=== PATIENT | female | born 1970 | race Caucasian/White ===

== ENCOUNTER 2025-05-25 11:57 | Observation (INO) | payer OTHER, SELFPAY ==
[2025-05-25] VITALS (32 sets, daily range): BP systolic 110–136; BP diastolic 64–94; PULSE 60–91; RESP 14–19; TEMP 35.8–36.9; O2SAT 96–100; BMI 27.3
--- NOTE | ~2025-05-25 | CT_ITS ---
EXAMINATION: CT abdomen pelvis wo con DATE: 05/25/2025 15:25 INDICATION: abd pain, vomiting, hx kidney stones TECHNIQUE: Computed tomography (CT) of the abdomen and pelvis was performed without intravenous contr ast. Automated exposure control and iterative reconstruction technique were employed. The dose-length product was 239.44 mGy-cm. COMPARISON: None. FINDINGS: Lower thorax: 5 mm peripheral left lower lobe pulmonary nodule. Liver: Normal. Biliary/Gallbladder: Gallbladder is absent. No bile duct dilation. Pancreas: No mass or duct dilation. Spleen: Normal. Adrenals:No mass. Kidneys: No suspicious mass, obstructing stone, or hydronephrosis. Multiple bilateral nonobstructing renal calculi, measuring up to 6 mm in the left lower pole. GI tract: No small or large bowel dilation. Appendix is dilated measuring up to 8 mm. No significant surrounding inflammatory change. Mesentery/Peritoneum: No ascites, mass, or free air. Retroperitoneum: No mass. Atherosclerotic calcifications of intra-abdominal arterial vessels. Pelvis: Normal urinary bladder. Absent uterus. Simple appearing bilateral ovarian cysts.. Soft Tissues: Small uncomplicated fat-containing bilateral inguinal hernias. Bones: No acute osseous finding. Grade 1 anterolisthesis at L4-5. IMPRESSION: 5 mm peripheral left lower lobe pulmonary nodule which requires no additional evaluation, unless the patient is at high risk, in which case consider an optional follow-up low-dose noncontrast CT of the chest in 12 months. Bilateral nephrolithiasis, without evidence of obstructive uropathy. Dilated appendix measuring up to 8 mm, without inflammatory changes. This may be normal for this darryl ent or represent early acute uncomplicated appendicitis. Reviewed, dictated and finalized at location K. IMPRESSION: 5 mm peripheral left lower lobe pulmonary nodule which requires no additional e valuation, unless the patient is at high risk, in which case consider an option al follow-up low-dose noncontrast CT of the chest in 12 months. Bilateral nephrolithiasis, without evidence of obstructive uropathy. Dilated appendix measuring up to 8 mm, without inflammatory changes. This may b e normal for this patient or represent early acute uncomplicated appendicitis.
--- NOTE | 2025-05-25 11:58 | ECG_ITS ---
Test Date: 2025-05-25 12:03:32 Measurements Intervals [place] Rate: 61 P: 53 ID: 150 QRS: -4 QRSD: 105 T: 28 QT: 398 QTc: 402 Interpretive Statements SINUS RHYTHM POSSIBLE RIGHT VENTRICULAR CONDUCTION DELAY [RSR (QR) IN V1/V2] No previous ECG available for comparison Electronically Signed On 05-25-2025 18:00:08 CDT by Helio Perry M.D.
[2025-05-25 14:28] LABS: Add Urine Microscopic? YES; Appearance Urine Cloudy (Clear); Glucose Urine UA Negative (Negative); Leukocyte Esterase Ur 2+ LEU/UL (Negative); Nitrate Urine Positive (Negative); Non Pathogenic Casts 0-2; Specific Grav Ur 1.018 (1.001-1.035)
[2025-05-25 14:31] LABS: Hematocrit 40.6 % (37.0-47.0); Hemoglobin 13.9 g/dL (12.0-15.0); Immature Granulocyte Percent A 0.6 % (0-0.5); Lymphocytes Absolute Auto 0.81 K/mm3 (0.9-3.2); Mean Corpuscular HGB Conc 34.2 g/dl (32-36); Mean Corpuscular Hemoglobin 29.8 pg (26-34); Mean Corpuscular Volume 86.9 fl (80-100); Nucleated Red Blood Cells Absolute Auto 0.000 K/mm3 (0.0-0.012); Nucleated Red Blood Cells Perc 0.0 % (0.0-0.2); Platelet Count Result 221 k/mm3 (150-375); Red Blood Count 4.67 M/mm3 (4.2-5.4); White Blood Count 16.6 K/mm3 (4.5-10.0)
--- OUTSIDE RECORDS SUMMARY | 2025-05-25 14:41 | XMS_ITS | Encounter Summary ---
Author Organization [employer] Address [address] [place] [address] Care Team Providers Care As400 Analyst Name Role Phone Tracey Silva MD Primary Care Provid er Reason for Visit * Reason Comments Medication Refill Encounter Details Date Type Department Care Team (Late st Contact Info) Description 12/09/2019 Refill [facility] [address] [facility] [address] [place] [id number] Patti Calderon NP NO ADDRESS ON FILE Social History Tobacco Use Types Packs/Day Years Used Date Smoking Tobacco: Never Smokeless Tobacco: Never Alcohol Use Standard Drinks/Week Comments Yes 0 (1 standard drink = 0.6 oz pur e alcohol) socially Comments No Sex and Gender Information Value Date Recorded Sex Assigned at Not on file 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 Gender Identity Not on file Sexual Orientation Not on file Occupation Industry Job Start Date Job End Date Not on file Not on file Not on file Not on file documented as of this encounter Plan of Treatment Not on file documented as of this encounter Visit Diagnoses Not on filedocumented in this encounter Additional Health Concerns Infection Onset Date Last Indicated Resolved Time MRSA Comment:Resolved per Type and Duration of Precautions Recommended for Selected Infections and Conditions document 2023 update 04/16/2020 04/16/2020 07/15/20 24 11:36 AM CDT Assessment Noted Time PHQ-9 Depression Total Score: 3 11/04/19 20 8:00 AM WIRE TAPER documented as of this encounter Care Teams As400 Analyst Relationship Specialty Start Date End Date Tracey Silva MD PCP - General Internal Medicine 12/29/14 08/02/23 documented as of this encounter
--- OUTSIDE RECORDS SUMMARY | 2025-05-25 14:42 | XMS_ITS | Patient Health Record ---
Author Organization [facility] [place] Address [address] [place] [address] Care Team Providers Care Mulling Machine Operator Name Role Phone Joel Monroe Unavailable [phone] Rob SPENCER, Esteban Unavailable Unavailabl e Allergies Allergen (clinical drug ingredient) Drug/Non Drug Allergy documented on EMR Reaction Allergy Type Onset Date Status Shellfish (FN) shellfish (uncoded) Unknown Allergy Active Levaquin Unknown Drug Allergy Active morphine Morphine Sulfate Unknown Drug Allergy Active Sulfacet-R Unknown Drug Allergy Active tiagabine Tiagabine HCl Unknown Drug Allergy Act mina Reason For Referral No Information Medications Medication SIG (Take, Route, Frequency, Duration) Notes Start Date End Date Status Zofran 4 MG 1 tablet Orally Once a day Active Diclofenac Sodium 75 MG 1 tablet Orally Twice a day Active Cyclobenzaprine HCl ER 15 MG 1 capsule a s needed Orally Once a day Active Virtussin A/C 100-10 MG/5ML 5 ml Orally every 4 hrs Active diazePAM 2 MG 1 tablet as needed Orally Once a day Active Emgality 120 MG/ML as directed Subcutaneous Active Lisinopril 20 MG 1 tablet Orally Once a day Active FLUoxetine HCl 40 MG 1 capsule Orally On ce a day Active HYDROcodone-Acetaminophen 5-325 MG 1 tablet as needed Orally every 6 hrs Active Nortriptyline HCl 25 MG as directed Oral ly Once a day Active B12 Fast Dissolve 5000 MCG as directed Orally Active Protonix 40 MG 1 tablet Orally Once a day Active buPROPion HCl ER (XL) 300 MG 1 tablet in the morning Orally Once a day Active Imitrex 50 MG 1 tablet at least 2 hours between doses as needed Orally Once a day Active Cambia 50 MG as directed Orally Active Ventolin HFA 108 (90 Base) MCG/ACT 1 puff as needed Inhalation every 4 hrs Active Social History Tobacco Use: Social History Observation Description Date Details (start date - stop date) Never Smoker NA - NA Tobacco Use/Smoking Question Answer Notes Are you a nonsmoker Alcohol Screen (Audit-C) Question Answer Notes Did you have a drink containing alcohol in the p ast year? Yes Points 0 Interpretation Negative Problems Problem Type SNOMED Code ICD Code Onset Dates Problem Status W/U Status Risk Notes Problem Displacement of lumbar intervertebral disc without myelopathy (79403128) Bulging lumbar disc (M51.26) Active confirmed Problem Degeneration of lumbar intervertebral disc (09738785) Degeneration of intervertebral disc at L5-S1 level (M51.36) Active confirmed Plan Of Treatment Pending Test Test Name Order Date MRI : Lumbar without contrast 12/23/2019 Insurance Providers Payer Name Payer Address Payer Phone Subscriber Number Group Number Insured Name Patient Relationship to Insured Coverage Start Date Coverage End Date [facility] POS [address] [place] [phone] [id number] Graciela Arauz Self - patient is the insured Medical (General) History Medical History History ICD Code kidney infections kidney stones urinary incontinence bladder infections headaches migraine headaches irritable bowel syndrome asthma mononucleosis depression anxiety Panic attacks Surgical History Surgery Date(Month/Year) shoulder replacement kidney stones hysterectomy Hospitalization History Reason Date(Month/Year) sepsis
--- OUTSIDE RECORDS SUMMARY | 2025-05-25 14:42 | XMS_ITS | Encounter Summary ---
Author Organization [employer] Address 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 Gender Identity Not on file Sexual Orientation Not on file documented as of this encounter Plan of Treatment Not on file documented as of this encounter Visit Diagnoses Diagnosis Unspecified symptom associated with female genital organs- Primary documented in this encounter Additional Health Concerns Infection Onset Date Last Indicated Resolved Time MRSA Comment:Resolved per Type and Duration of Precautions Recommended for Selected Infections and Conditions document 2023 update 04/16/2020 04/16/2020 07/15/20 24 11:36 AM CDT documented as of this encounter Care Teams Clinical Medical Assistant Relationship Specialty Start Date End Date Tracey Silva MD PCP - General Internal Medicine 12/29/14 08/02/23 documented as of this encounter
--- OUTSIDE RECORDS SUMMARY | 2025-05-25 14:42 | XMS_ITS | Encounter Summary ---
Author Organization [facility] Address 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 Gender Identity Not on file Sexual Orientation Not on file documented as of this encounter Plan of Treatment Not on file documented as of this encounter Visit Diagnoses Diagnosis Other screening mammogram- Primary documented in this encounter Additional Health Concerns Infection Onset Date Last Indicated Resolved Time MRSA Comment:Resolved per Type and Duration of Precautions Recommended for Selected Infections and Conditions document 2023 update 04/16/2020 04/16/2020 07/15/20 24 11:36 AM CDT documented as of this encounter Care Teams Force Adjustment Supervisor Relationship Specialty Start Date End Date Tracey Silva MD PCP - General Internal Medicine 12/29/14 08/02/23 documented as of this encounter
--- OUTSIDE RECORDS SUMMARY | 2025-05-25 14:42 | XMS_ITS | Patient Health Record ---
Author Organization [facility] Address [address] [place], [place] [address] Care Team Providers Care Dentistry Teacher Name Role Phone Everardo Urbina Unavailable [phone] Migration, Provider Unavailable Unavailable Allergies Allergen (clinical drug ingredient) Drug/Non Drug Allergy documented on EMR Reaction Allergy Type Onset Date Status LEVAQUIN (uncoded) Unknown Allergy Active Seafood SEAFOOD (uncoded) Unknown Allergy Active SULFA (uncoded) hives Allergy Acti ve azithromycin Zithromax Z-Hardeep diarrhea Drug Allergy Active trimethobenzamide Tigan swellen Drug Allergy Active morphine Morphine hallucination Drug Allergy Act mina Reason For Referral No Information Medications Medication SIG (Take, Route, Frequency, Duration) Notes Start Date End Date Status Flonase Allergy Relief 50 MCG/ACT 1 spray(s) intranasally once a day Active Qvar RediHaler 40 MCG/ACT 2 puff(s) inhaled 2 times a day Active Medrol DIRECTED DIRECTED ORALLY DIRECTED for DIRECTED *Please review and pick correct strength-formulatio n from arGEN-Xan options. If intended option is not shown, discontinue and re-order from Quick Search* 03/16/2016 Active WALTIN-D PRN *Please review f or potential replacement for e-prescription and drug interaction check* Active WELLBUTRIN 100 MG 1 TAB(S) ORALLY 2 TIMES A DAY *Please review for potential replacement for e-prescription and drug interaction check* Active Protonix 40 MG 1 tab(s) orally once a day Active Magnesium *Please review a nd pick correct strength-formulatio n from Medispan options. If intended option is not shown, discontinue and re-order from Quick Search* Active CALCIUM D-PANTOTHENATE *Please review for potential replacement for e-prescription and drug interaction check* Active Linzess 145 MCG 1 cap(s) orally once a day Active Encounters Encounter Location Date Provider Diagnosis [facility] [address] [place], [place] [id number] 10/12/2024 Provider Migration Plan Of Treatment No Information Insurance Providers Payer Name Payer Address Payer Phone Subscriber Number Group Number Insured Name Patient Relationship to Insured Coverage Start Date Coverage End Date [facility] [address] [place] [id number] Graciela Arauz Self - patient is the insured Medical (General) History Medical History History ICD Code Pertinent Medical History: S inusitis, History of Allergies, Ear problems, Nose problems, Throat/Neck problems, Asthma, Migraine headaches, Anxiety/Depression,
--- OUTSIDE RECORDS SUMMARY | 2025-05-25 14:42 | XMS_ITS ---
Author Organization [facility] Address [address] [place], [place] [address] Care Team Providers Care Director Of Events Name Role Phone Everardo Urbina Unavailable [phone] Migration, Provider Unavailable Unavailable Allergies Allergen (clinical drug ingredient) Drug/Non Drug Allergy documented on EMR Reaction Allergy Type Onset Date Status LEVAQUIN (uncoded) Unknown Allergy Active Seafood SEAFOOD (uncoded) Unknown Allergy Active SULFA (uncoded) hives Allergy Acti ve azithromycin Zithromax Z-Hardeep diarrhea Drug Allergy Active trimethobenzamide Tigan swellen Drug Allergy Active morphine Morphine hallucination Drug Allergy Act mina REASON FOR VISIT [facility] Conversion Encounter Medications Medication SIG (Take, Route, Frequency, Duration) Notes Start Date End Date Status WELLBUTRIN 100 MG 1 TAB(S) ORALLY 2 TIMES A DAY *Please review for potential replacement for e-prescription and drug interaction check* Active Protonix 40 MG 1 tab(s) orally once a day Active Magnesium *Please review a nd pick correct strength-formulatio n from NMRKTan options. If intended option is not shown, discontinue and re-order from Quick Search* Active CALCIUM D-PANTOTHENATE *Please review for potential replacement for e-prescription and drug interaction check* Active Linzess 145 MCG 1 cap(s) orally once a day Active Flonase Allergy Relief 50 MCG/ACT 1 spray(s) intranasally once a day Active Qvar RediHaler 40 MCG/ACT 2 puff(s) inhaled 2 times a day Active Medrol DIRECTED DIRECTED ORALLY DIRECTED for DIRECTED *Please review and pick correct strength-formulatio n from [employer] options. If intended option is not shown, discontinue and re-order from Quick Search* 03/16/2016 Active WALTIN-D PRN *Please review f or potential replacement for e-prescription and drug interaction check* Active Encounters Encounter Location Date Provider Diagnosis [facility] [address] [place], [place] [id number] 10/12/2024 Provider Migration Plan Of Treatment No Information Progress Notes * Josie ARAUZOB:1970 (55 yo F)Acc No.[id number]:10/12/2024 Patient: Graciela VASQUES Provider: Tramaine cruz Migration :1970 A ge:54 Y S ex:Female Date:10/12/2024 Address:[facility] [address], [place] [address] Subjective: * Chief Complaints: * 1 . [facility] Conversion Encounter. * Medical History: * Medications: T aking Medrol DIRECTED TABLETS DIRECTED ORALLY DIRECTED , Notes to Pharmacist: *Please review and pick correct strength-formulation from Medispan options. If intended option is not shown, discontinue and re-order from Quick Search*, Taking WALTIN-D PRN , Notes to Pharmacist: *Please review for potential replacement for e-prescription and drug interaction check*, Taking Flonase Allergy Relief 50 MCG/ACT Suspension 1 spray(s) intranasally once a day , Taking Qvar RediHaler 40 MCG/ACT Aerosol Breath Activated 2 puff(s) inhaled 2 times a day , Taking Linzess 145 MCG Capsule 1 cap(s) orally once a day , Taking WELLBUTRIN 100 MG TABLET 1 TAB(S) ORALLY 2 TIMES A DAY , Notes to Pharmacist: *Please review for potential replacement for e-prescription and drug interaction check*, Taking Protonix 40 MG Tablet Delayed Release 1 tab(s) orally once a day , Taking Magnesium , Notes to Pharmacist: *Please review and pick correct strength-formulation from Medispan options. If intended option is not shown, discontinue and re-order from Quick Search*, Taking CALCIUM D-PANTOTHENATE , Notes to Pharmacist: *Please review for potential replacement for e-prescription and drug interaction check* * Allergies: S ULFA: hives - Side Effects, Morphine: hallucination - Side Effects, Zithromax Z- Hardeep: diarrhea - Side Effects, Tigan: swellen - Side Effects, SEAFOOD, LEVAQUIN. Objective: * Vitals: * Physical Examination: Assessment: Plan: * Treatment: * Images: * Electronic signature of Prov ider Migration on 05/25/2025 at 02:42 PM CDT Sign off status: Pending * Provider: Tramaine cruz Migration Date: 12/13/2023 Generated for Supa jin/Mariangel/Ady on: 0 05/25/2025 02:42 PM CDT
--- OUTSIDE RECORDS SUMMARY | 2025-05-25 14:42 | XMS_ITS | Clinical Summary ---
Author Organization [facility] Address [address] [place] [address] Care Team Providers Care Supervisor Twisting Department Name Role Phone Unavailable Primary Care Provider Unavailabl e Allergies Active Allergy Reactions Criticality Noted Date Comments Adhesive Unknown 11/07/2014 Other reaction(s): Hives Hives Adhesive Tape-Silicones Hives High 11/07/2014 Azithromycin Diarrhea Low 10/18/2012 Latex Unknown 07/09/2014 Levofloxacin Muscle Pain Low 12/29/2014 Muscle aches Morphine Hallucination Medium 01/13/2014 Hallucinations Patient had pruritic rash and dysphoria after morphine Shellfish Containing Products Hives High 12/31/2013 Sulfa (Sulfonamide Antibiotics) Hives,Swelling High 02/17/2009 Sulfasalazine Hives High 02/17/2009 Tiagabine Hcl Unknown 12/23/2019 Trimethobenzamide Hives,Swelling High 03/07/2011 Trimethobenzamide Hcl Swelling Medium 04/17/2009 Medications pantoprazole (PROTONIX) 40 mg Tablet, Delayed Release (E.C.) TK 1 T PO BID. 5 8 Active SUMAtriptan (IMITREX) 50 mg tabletIndications :Other migraine without status migrainosus, intractable Take 1 Tablet (50 mg) by mouth every 2 hours as needed for Headaches may repeat in 2 hours; max dose 200mg in 24 hours . 20 Tablet 9 Active calcium-vitamin D3 (CALTRATE 600+D) 600 mg (1,500 mg) -200 unit Tablet Take 1 Tablet by mouth. Active EMGALITY PEN 120 mg/mL Pen Injector 0 Active cyanocobalamin 1,000 mcg Tablet Take 1,000 mcg by mouth daily. Active linaCLOtide (LINZESS) 290 mcg capsule Take 290 mcg by mouth daily before breakfast. Active albuterol sulfate 90 mcg/Actuation inhaler INHALE 2 PUFFS BY MOUTH EVERY 6 HOURS NEEDED FOR SHORTNESS OF BREATH 18 Gram 1 Active ipratropium-albut Kavitha (DUONEB) 0.5 mg-3 mg(2.5 mg base)/3 mL Solution for Nebulization Take 3 mL by inhalation every 6 hours as needed for Shortness of Breath. 360 mL 3 1 Active fluticasone propionate (FLONASE) 50 mcg/spray [place], Suspension nasal inhaler Administer 2 Sprays in each nostril daily. 16 Gram 3 1 Active valACYclovir (VALTREX) 1 gram tablet Take 2,000 mg by mouth 2 times daily. 2 Active montelukast (SINGULAIR) 10 mg tabletIndications :Acute bronchitis, unspecified organism,Moderate persistent asthma with acute exacerbation TAKE 1 TABLET(10 MG) BY MOUTH DAILY AT BEDTIME 90 Tablet 4 2 Active methylPREDNISolon e (MEDROL DOSPACK) 4 mg Tablets, Dose Pack Take as directed on package. 21 Tablet 3 Active codeine-guaiFENes in (ROBITUSSIN-AC) 10-100 mg/5 mL LiquidIndications :Upper respiratory tract infection, unspecified type Take 10 mL by mouth every 6 hours as needed for Cough. 180 mL 3 Active fluticasone propion-salmetero L (ADVAIR DISKUS,WIXELA INHUB) 100-50 mcg/dose disk inhaler Take 1 Puff by inhalation 2 times daily. 60 Each 3 Active lisinopriL (PRINIVIL) 20 mg tabletIndications :HTN (hypertension), benign TAKE 1 TABLET BY MOUTH EVERY DAY 90 Tablet 1 3 Active ondansetron (ZOFRAN ODT) 4 mg Tablet, Rapid DissolveIndicatio ns:Epigastric abdominal pain,Nausea DISSOLVE 1 TO 2 TABLETS BY MOUTH ON THE TOP OF THE TONGUE, THEN SWALLOW WITH SALIVA EVERY 8 HOURS 40 Tablet 1 3 Active mupirocin (BACTROBAN) 2 % Ointment Apply to affected area daily. 60 Gram 3 Active Active Problems Patient Care Coordination No te Formatting of this note migh t be different from the original. Ortho: Dr. Rivas OBGYN: Dr. Solares ENT: Dr. Rodrigues Urology: Dr. Puneet Taveras MD--[phone] GI: was Dr. Silviano Roman, now [facility] Human Resources Executive Assistant--Dr. Eduardo Dockery Problem Noted Date Diagnosed Date History of 2019 novel coronavirus disease (COVID -19) 07/21/2021 Overview (07/21/2021): 05/2021 Anxiety state 09/25/2019 Recurrent major depressive disorder, in partial remission 09/25/2019 Moderate persistent asthma with acute exacerbati on 08/25/2016 Overview (08/25/2016): EXCERCISE INDUCED GERD (gastroesophageal reflux disease) 6 History of kidney stones 08/24/2016 Anxiety and depression 08/05/2016 Recurrent cold sores 06/15/2016 History of atrial fibrillation 03/15/2016 Keratosis pilaris, acquired 02/24/2016 Irritable bowel syndrome with constipation 01/21 Osteopenia 01/22/2016 Bilateral low back pain without sciatica 016 Nonallopathic lesion of lumbar region 01/12/2016 Nonallopathic lesion of pelvic region 01/12/2016 Nonallopathic lesion of thoracic region 01/12/20 16 Allergic rhinitis 01/20/2015 Lymphedema of lower extremity 06/09/2014 Hypokalemia 12/06/2013 Chronic sinusitis 02/01/2013 Migraine 08/23/2012 Mole (skin) 08/26/2011 Occasional numbness/prickling/tingling of finger s and toes 08/26/2011 B12 deficiency 07/01/2011 Urolithiasis 04/05/2011 Overview (04/05/2011): Followed by Dr. Puneet Taveras MD--[phone] Resolved Problems Problem Noted Date Diagnosed Date Resolved Date Poison martín dermatitis 03/15/20172020 Acute pyelonephritis poa 08/24/2016 SIRS (systemic inflammatory response syndrome) 08/24/2016 03/20/2017 Irritable bowel syndrome wit h both constipation and diarrhea 08/05/2016 03/20/2017 Asthma exacerbation 07/27/2016 07/27/20 16 Bleeding hemorrhoids 04/06/2016 017 Anxiety and depression 02/25/201608/05 Rapid palpitations 09/01/2014 7 Atrial fibrillation with rap id ventricular response 05/05/2014 03/15/2016 Nausea and vomiting 05/05/2014 03/20/20 17 Abdominal pain 12/06/2013 11/04/2020 Overview (12/07/2013): 12/07/2013 The patient reported epigastric abdominal pain that was unrelated to food intake. She had an unremarkable CT scan, ultrasound, and HIDA scan. The pain was improving after administration of PPI. This was possibly transient gastritis or related to possible peptic ulcer disease. On day of discharge, patient was tolerating diet and pain was controlled. Discharged with prescription for PPI and instructed to follow up with her GI doctor, Dr. Roman, for further workup. IBS (irritable bowel syndrome) 07/01/2011 01/22/2016 Overview (07/01/2011): Dr. Silviano Roman BMI 29.0-29.9,adult 03/11/2011 06/28/20 12 Stress reaction, emotional 03/11/2011 0 02/25/2016 Left ureteral calculus 02/24 Acute bilateral low back brittani n without sciatica 03/20/2017 Gastroesophageal reflux dise ase without esophagitis 03/20/2017 Encounters Date Type Department Care Team Description 05/14/2025 External Device Data ST[facility] ABSTRACTION Provider, Abstract 05/14/2025 External Device Data [facility] ABSTRACTION Provider, Abstract 05/14/2025 External Device Data [facility] ABSTRACTION Provider, Abstract 05/14/2025 External Device Data [facility] ABSTRACTION Provider, Abstract 05/13/2025 External Device Data [facility] ABSTRACTION Provider, Abstract 04/16/2025 External Device Data ST[facility] ABSTRACTION Provider, Abstract 04/15/2025 External Device Data ST[facility] ABSTRACTION Provider, Abstract 03/20/2025 External Device Data ST[facility] ABSTRACTION Provider, Abstract 03/19/2025 External Device Data ST[facility] ABSTRACTION Provider, Abstract 03/18/2025 External Device Data STL ABSTRACTION Provider, Abstract from Last 3 Months Immunizations Immunization Administration Dates Next Due (ADACEL/BOOSTRIX)(10 YR UP) TDAP VACCINE, 0.5ML, IM 05/25/2023,07/06/2012 (PFIZER)(12 YR UP) COVID-19 VACCINE - EMERGENCY USE AUTHORIZATION, MRNA, [id number](PF) 30 MCG/0.3 ML IM SUSP 09/28/2021,03/03/2021,02/08/2021 (PREVNAR 20)(6 WKS UP) PNEUM OCOCCAL CONJUGATE VACCINE 20-VALENT (PCV20), POLYSACCHARIDE [id number] CONJUGATE, ADJUVANT 0.5 ML (PF) IM 08/02/2022 INFLUENZA VACCINE QUADRIVALE NT 3 YR UP PF IM 10/11/2018,07/25/2017,08/05/2016 INFLUENZA VACCINE QUADRIVALE NT 6 MOS UP PF IM 07/30/2021,09/07/2020,09/04/2019 INFLUENZA VACCINE QUADRIVALE NT RECOMB 18 YR UP PF IM 08/02/2022 Influenza Seasonal Unspecifi ed Formulation IM 06/30/2013 Skin Test TB 07/03/2012 Family History Medical History Relation Name Comments Healthy Daughter 1 Healthy Daughter 2 Hypertension Father Unknown Father Breast Cancer Maternal Aunt 1 Colon Cancer Maternal Aunt 2 Heart Disease Maternal Grandfather MO Cancer Maternal Grandmother stomach Lung Cancer Maternal Uncle Hypertension Mother Lung Cancer Mother metastatic to b rain Respiratory Disease Mother Healthy Sister 1 Healthy Sister 2 Healthy Sister 3 Healthy Sister 4 Healthy Son Relation Name Status Comments Daughter 1 Alive Daughter 2 Alive Father Maternal Aunt 1 Maternal Aunt 2 Maternal Grandfather Maternal Grandmother Maternal Uncle Mother Alive Sister 1 Sister 2 Sister 3 Sister 4 Son Alive Social History Tobacco Use Types Packs/Day Years Used Date Smoking Tobacco: Never Smokeless Tobacco: Never Tobacco Cessation:Counseling Given: No Alcohol Use Standard Drinks/Week Comments Yes 0 (1 standard drink = 0.6 oz pur e alcohol) socially Comments No Sex and Gender Information Value Date Recorded Sex Assigned at Not on file 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 Gender Identity Not on file Sexual Orientation Not on file Occupation Industry Job Start Date Job End Date Not on file Not on file Not on file Not on file Last Filed Vital Signs Vital Sign Reading Time Taken Comments Blood Pressure 124/74 08/02/2022 8:34 AM CDT Pulse 105 08/02/2022 8:34 AM CDT Temperature 36.3 C (97.3 F) 09/07/2020 11: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 Respiratory Rate 16 08/02/2022 8:34 AM CDT Oxygen Saturation 96% 08/02/2022 8:34 AM CDT Inhaled Oxygen Concentration - - Weight 92.5 kg (204 lb) 01/03/2023 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 Height 167.6 cm (5' 6) 01/03/2023 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 Body Mass Index 32.93 01/03/2023 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 Plan of Treatment Health Maintenance Due Date Last Done Comments DIABETES ANNUAL FOOT EXAM 1989 DIABETES ANNUAL RETINAL EXAM 1989 DIABETES MICROALBUMIN ANNUAL SCREEN 1989 HEPATITIS B VACCINES (1 of 3 - 19+ 3-dose series) 1990 DIABETES HBA1C Q 6 MONTHS 02/25/2012 08/26/2011 FIT-DNA Q 3 years 2016 FIT/FOBT Q 1 year 2016 Flex Sig/CT Colonography Q 5 years 2016 ZOSTER VACCINE (1 of 2) 2021 LDL CHOLESTEROL ANNUAL 08/02/2023 , 08/10/2021, 03/20/2017, Additional history exists COVID-19 Vaccine ( - 2023-2 5 season) 2024 09/28/2021, 03/03/2021, 02/08/2021 INFLUENZA VACCINE (#1) 2025 2, 07/30/2021, 09/07/2020, Additional history exists BREAST CANCER SCREENING 07/15/2025 07/15/20 24, 07/15/2024, 07/15/2024, Additional history exists COLORECTAL SCREENING 06/01/2031 06/01/2021, 11/07/2014, 12/08/2006 Colorectal Cancer Screening 06/01/2031 DTAP/TDAP/TD VACCINES (3 - T d or Tdap) 05/25/2033 05/25/2023, 07/06/2012 Medical Devices Implanted Type Area Inspector Balance Truing Device Identifier Shelf Expiration Date Model / Serial / Lot Stent Cntr [id number] [id number] - [id number] Implanted:Qty : 1 on 08/25/2016 by Jaun Alvarez MD at [facility] Stent Left: Ureter [employer]/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 [id number] 02/17/2019 [id number] / / [id number] Procedures Procedure Name Priority Date/Time Associated Diagnosis Comments MAMMO 3D IDALMIS SCREEN BILAT W OR WO CAD Routine 07/15/2024 9:43 AM CDT Visit for screening mammogram LIPID PANEL Routine 08/02/2022 9:30 AM CDT Annual physical exam ENDOSCOPY, COLON, SCREENING Routine 11/07/2014 HEMOGLOBIN A1C Routine 08/26/2011 10:35 AM CDT Occasional numbness/prickling/ tingling of fingers and toes from Last 3 Months or Most Recently Relevant to Health Maintenance Results * MAMMO 3D IDALMIS SCREEN BILAT W OR WO CAD (07/15/2024 9:43 AM CDT) Anatomical Region Laterality Modality Breast Bilateral Mammography 07/15/2024 9:43 AM CDT Impressions 07/15/2024 11:58 AM CDT IMPRESSION: No suspicious findings to suggest malignancy in either breast. Annual mammography is recommended. OVERALL FINAL ASSESSMENT: BI-RADS CATEGORY 1: Negative. DICTATION LOCATION: [facility] Narrative 07/15/2024 11:58 AM CDT BILATERAL SCREENING DIGITAL MAMMOGRAM WITH 3D TOMOSYNTHESIS AND CAD DATE: 07/15/2024 9:43 AM HISTORY: Routine screening. TECHNIQUE: Full-field digital craniocaudal and mediolateral oblique projections of both breasts were obtained. Low-dose full-field digital breast tomosynthesis examination was performed with 2D and 3D acquisitions. Examination is read in conjunction with computer aided detection. COMPARISON: 06/15/2023 and older. BREAST COMPOSITION: There are scattered areas of fibroglandular density. FINDINGS: No suspicious mass, suspicious microcalcifications, or architectural distortion is identified in either breast. Computer aided detection was used in the interpretation of this examination. Procedure Note Monique Sepulveda MD - 07/15/2024 BILATERAL SCREENING DIGITAL MAMMOGRAM WITH 3D TOMOSYNTHESIS AND CAD DATE: 07/15/2024 9:43 AM HISTORY: Routine screening. TECHNIQUE: Full-field digital craniocaudal and mediolateral oblique projections of both breasts were obtained. Low-dose full-field digital breast tomosynthesis examination was performed with 2D and 3D acquisitions. Examination is read in conjunction with computer aided detection. COMPARISON: 06/15/2023 and older. BREAST COMPOSITION: There are scattered areas of fibroglandular density. FINDINGS: No suspicious mass, suspicious microcalcifications, or architectural distortion is identified in either breast. Computer aided detection was used in the interpretation of this examination. IMPRESSION: No suspicious findings to suggest malignancy in either breast. Annual mammography is recommended. OVERALL FINAL ASSESSMENT: BI-RADS CATEGORY 1: Negative. DICTATION LOCATION: [facility] us Robbin Zarco MD MAMMO ORDERABLES Final Resu lt * (ABNORMAL) LIPID PANEL (08/02/2022 9:30 AM CDT) CHOLESTEROL 192 <200 mg/dL [facility] HDL 37(L) > OR = 50 mg/dL [facility] TRIGLYCERIDE 371(H) <150 mg/dL [facility] Comment: If a non-fasting specimen was collected, consider repeat triglyceride testing on a fasting specimen if clinically indicated. Amber et al. J. of Clin. Lipidol. 2015;9:129-169. LDL CALCULATED 106(H) mg/dL (calc) [facility] Comment: Reference range: <100 Desirable range <100 mg/dL for primary prevention; <70 mg/dL for patients with CHD or diabetic patients with > or = 2 CHD risk factors. LDL-C is now calculated using the David calculation, which is a validated novel method providing better accuracy than the Friedewald equation in the estimation of LDL-C. Thierno MORAES et al. KIESHA. 2013;310(19): 4152-8213 (http://education.Weimi/faq/CRO319) CHOL/HDL RATIO 5.2(H) <5.0 (calc) [facility] kumar Rodrigo TOTAL NON-HDL CHOL(LDL+VLDL) 155(H) <130 mg/dL (calc) [facility] kumar Rodrigo Comment: For patients with diabetes plus 1 major ASCVD risk factor, treating to a non-HDL-C goal of <100 mg/dL (LDL-C of <70 mg/dL) is considered a therapeutic option. Test Performed at: [place] [address] [place] [address] EmelyVal Carranza Blood 08/02/2022 9:30 AM CDT 08/02/2022 9:32 AM CDT Tracey GUAMAN CHEMISTRY ORDERABLES Final Result [facility] [phone] [place] [address] [place] [address] * ENDOSCOPY, COLON, SCREENING (11/07/2014) Abstract Provider GI PROCEDURE ORDERABLES Final Result Performing Organization Address City/[facility] Co de Phone Number [facility] * HEMOGLOBIN A1C (08/26/2011 10:35 AM CDT) HEMOGLOBIN A1C 5.2 4.1 - 6.1 % of Hgb [facility] EST. AVG GLUCOSE, A1C 103 mg/dL [facility] Comment: The reported estimated average glucose (eAG) based on the HbA1c determination is calculated using the ADAG study equation. Further interpretative information is available in the Laboratory Services Policy Manual on the [facility] Intranet at: [email or web address]/ Blood specimen (specimen) 08/26/2011 10:35 AM CDT 08/26/2011 1:24 PM CDT Eileen Smith MD CHEMISTRY ORDERABLES Final Result Performing Organization Address City/[facility]/ZIP Co de Phone Number [facility]# [id number] [address] [place] [address] from Last 3 Months or Most Recently Relevant to Health Maintenance Insurance Advance Directives For more information, please contact: [phone] * Full Code (Latest Code Status on File) Date Activated Date Inactivated Comments 08/24/2016 8:22 PM 08/27/2016 12:32 PM * Full Code Date Activated Date Inactivated Comments 05/05/2014 11:02 PM 05/07/2014 3:04 PM * Full Code Date Activated Date Inactivated Comments 05/05/2014 7:40 PM 05/05/2014 11:02 PM * Full Code Date Activated Date Inactivated Comments 01/13/2014 12:32 PM 01/13/2014 6:32 PM * Full Code Date Activated Date Inactivated Comments 01/13/2014 11:27 AM 01/13/2014 12:32 PM
--- OUTSIDE RECORDS SUMMARY | 2025-05-25 14:42 | XMS_ITS | Clinical Summary ---
Author Organization [facility] Address [address] [place] [address] Care Team Providers Care Director Account Management Name Role Phone Robbin Zarco MD Unavailable [phone] Chuck Ashraf DO Primary Care Provider [phone] Source Comments [facility],non-owned Affiliates and Associated Physician Practices is amultiple site organization consisting of ambulatory clinics and hospital sitesin [place], [place], [place] and [place]. This disclosure is being madepursuant to the Care Everywhere program and may not contain all informatio navailable regarding this patient. Last updated 18.[facility] Allergies Active Allergy Reactions Criticality Noted Date Comments Adhesive Sensitivity 11/07/2014 Other reaction(s): Hives Hives Cefepime Rash Medium 04/12/2024 Latex Unknown 07/09/2014 Levofloxacin 08/04/2016 Muscle aches Morphine 11/06/2014 Hallucinations Shellfish 11/07/2014 Hives Shellfish-Derived Products Urticaria Medium 4 Sulfa Drugs Urticaria Medium 02/17/2009 Tiagabine Hcl Other 12/23/2019 Trimethobenzamide Hcl Swelling 04/17/2009 Trimethobenzamide Topical 09/28/2022 Azithromycin Diarrhea 10/18/2012 Medications * This document contains information received from the source organization and may not represent a complete record from that organization. * Be aware that medications may not be up to date on this document. Alwaysverify current medications with the patient. Albuterol Sulfate (VENTOLIN HFA IN) Inhale by mouth once daily as needed Active calcium citrate-vitamin D (CITRACAL PLUS D) 315-200 MG-UNIT tablet Take 1 (one) tablet by mouth once daily Active HYDROcodone-kaushal taminophen (NORCO) 5-325 MG tablet Take 2 (two) tablets by mouth every 6 hours as needed for Pain 20 tablet 022 Active fluticasone propionate (FLONASE) 50 MCG/ACT nasal spray SHAKE LIQUID AND USE 2 SPRAYS IN EACH NOSTRIL DAILY 021 Active ubrogepant (Ubrelvy) 100 MG tablet Take 1 (one) tablet by mouth 2 times daily as needed for Migraine (one at onset of MCKEE, repeat 2 hours, maximal 2 per day) No more than 2 doses in 24 hours. 16 tablet 5 023 Active Misc Natural Products (GLUCOSAMINE CHOND CMP ADVANCED PO) Active hydroCHLOROthia zide (Hydrodiuril) 25 MG tablet Take 1 (one) tablet by mouth once daily 90 tablet 3 024 Active linaCLOtide (Linzess) 290 MCG capsuleIndicati ons:Constipatio n, unspecified constipation type Take 1 (one) capsule by mouth every morning 90 capsule 1 024 Active alclometasone dipropionate (Aclovate) 0.05 % ointment Apply to affected area 2 times daily as needed 45 g 2 024 Active valACYclovir (Valtrex) 1 GM tablet TAKE 2 TABLETS BY MOUTH TWICE DAILY 20 tablet 1 024 Active cyanocobalamin (Vitamin B-12) 1000 MCG tablet Take 1 (one) tablet by mouth once daily Active potassium gluconate 595, 99 K, MG PO 595 (99 K) MG tablet 1 (one) tablet once daily Active ondansetron, disintegrating, (Zofran ODT) 4 MG tablet Take 1 (one) tablet by mouth every 6 hours as needed for Nausea/Vomiting Allow tablet to dissolve on the tongue 45 tablet 3 024 Active ketorolac (Toradol) 10 MG tablet Take 1 (one) tablet by mouth every 8 hours as needed for Pain 20 tablet 024 Active SUMAtriptan (Imitrex) 6 MG/0.5ML injection Inject 6 (six) mg subcutaneously as directed May repeat in one hour, DO NOT exceed 2 doses in 24 hours for migraine 3 mL 3 024 Active SUMAtriptan (Imitrex) 100 MG tablet TAKE 1 TABLET AT ONSET OF MIGRAINE. MAY REPEAT IN 2 HOURS IF NEEDED. 9 tablet 5 024 Active montelukast (Singulair) 10 MG tablet TAKE 1 TABLET(10 MG) BY MOUTH DAILY AT BEDTIME 90 tablet 1 024 Active albuterol HFA (Proventil; Ventolin; Proair) 108 (90 Base) MCG/ACT inhaler TAKE 2 PUFFS BY MOUTH EVERY 4 HOURS NEEDED FOR WHEEZING 8.5 g 5 024 Active amoxicillin-cla vulanate (Augmentin) 875-125 MG tablet Take 1 (one) tablet by mouth 2 times daily with morning and evening meal 20 tablet 025 Active guaiFENesin-cod eine (Robitussin AC) 100-10 MG/5ML syrup Take 10 mL by mouth every 6 hours as needed for Cough 240 mL 025 Active mupirocin (Bactroban) 2 % ointment Apply to affected area 2 times daily 22 g 5 025 Active Ibsrela 50 MG TABSIndications :Irritable bowel syndrome with constipation Take 50 mg by mouth 2 times daily 30 tablet 3 025 Active lisinopril (Prinivil; Zestril) 20 MG tablet TAKE 1 TABLET BY MOUTH EVERY DAY 90 tablet 1 025 Active pantoprazole EC (Protonix) 40 MG tabletIndicatio ns:Hassan's esophagus without dysplasia TAKE 1 TABLET BY MOUTH EVERY MORNING 30 TO 60 MINUTES BEFORE BREAKFAST 90 tablet 2 025 Active Galcanezumab-gn lm (Emgality) 120 MG/ML auto-injector penIndications: Chronic migraine without aura without status migrainosus, not intractable Inject 1 mL subcutaneously every 30 days 1 mL 5 025 Active buPROPion XL 24hr (Wellbutrin-XL) 300 MG tablet TAKE 1 TABLET BY MOUTH DAILY 90 tablet 1 025 Active naltrexone (Revia) 50 MG tablet TAKE 1 TABLET BY MOUTH EVERY DAY 90 tablet 1 025 Active Mounjaro 5 MG/0.5ML injectionIndica tions:Type 2 diabetes mellitus with other specified complication, without long-term current use of insulin (HCC) ADMINISTER 5 MG UNDER THE SKIN EVERY 7 DAYS 2 mL 025 Active Mounjaro 5 MG/0.5ML injectionIndica tions:Type 2 diabetes mellitus with other specified complication, without long-term current use of insulin (HCC) ADMINISTER 5 MG UNDER THE SKIN EVERY 7 DAYS 2 mL 025 2024 Discontinued Active Problems Problem Noted Date Diagnosed Date Depression with anxiety 08/06/2024 Diabetes mellitus 06/28/2024 HTN (hypertension), benign 02/20/2024 Ankle edema, bilateral 02/20/2024 Overweight (BMI 25.0-29.9) 07/31/2023 Gastroesophageal reflux disease 09/28/2022 Hemorrhoids 09/28/2022 Class 1 obesity due to exces s calories with serious comorbidity and body mass index (BMI) of 34.0 to 34.9 in adult 09/28/2022 Nausea without vomiting 02/01/2022 Abdominal pain, generalized 08/27/2019 Right flank pain 04/26/2019 Acute right flank pain 04/18/2019 Kidney stone 04/15/2019 Acute post-operative pain 04/15/2019 Hassan's esophagus without dysplasia 04/09/2019 Bloating 04/09/2019 SIRS (systemic inflammatory response syndrome) 0 03/12/2019 Migraine without aura and wi thout status migrainosus, not intractable 03/12/2019 Acute pyelonephritis 03/12/2019 Screening for cervical cancer 02/17/2009 Overview (02/17/2009): 08/15/08 WNL Other screening mammogram 02/17/2009 Overview (02/17/2009): 2006 Encounter for weight management 02/17/2009 Overview (02/17/2009): 2006 Resolved Problems Problem Noted Date Diagnosed Date Resolved Date Mild intermittent asthma wit h acute exacerbation 08/25/2023 09/08/2023 Constipation 09/28/2022 03/22/2024 Encounters Date Type Department Care Team Description 05/12/2025 Refill [facility] [place] [address] [place] , [address] [address] Angelica Cabral, TOURIST CAMP ATTENDANT-CHEMICAL WORKER Refill Request 04/24/2025 Travel 03/25/2025 Refill [facility] [place] [address] [address], [facility] [address] [place] [address] Angelica Cabral, TOURIST CAMP ATTENDANT-CHEMICAL WORKER Refill Request from Last 3 Months Immunizations Immunization Administration Dates Next Due INFLUENZA VACCINE, TRIV. (AF LURIA, FLUZONE TRIVALENT; 6MO+) (IIV3) 06/30/2013 FLU VACCINE TRI IIV3 SPLIT I M (FLUVIRIN) 09/22/2014 INFLUENZA VACCINE, QUADR. (F LUZONE; FLULAVAL; FLUARIX; AFLURIA QUADRIVALENT; 6MO+), 0.5 ML (IIV4) 07/30/2021,09/07/2020,09/04/2019,2017,07/25/2017,08/05/2016 PNEUMOCOCCAL PCV20 CONJ VAC IM 08/02/2022 TDAP (7yrs+) 05/25/2023,07/06/2012 iNFLUENZA VACCINE, RECOM-MCKEE, QUADR. (FLUBLOCK QUADRIVALENT; 18Y+) (RIV4) 08/02/2022 Family History Medical History Relation Name Comments Cancer Maternal Aunt breast Cancer - Lung Mother Relation Name Status Comments Maternal Aunt Mother Social History Tobacco Use Types Packs/Day Years Used Date Smoking Tobacco: Never Smokeless Tobacco: Never Tobacco Cessation:Counseling Given: Not Answered Alcohol Use Standard Drinks/Week Comments Yes 0 (1 standard drink = 0.6 oz pur e alcohol) social AUDIT-C Answer Date Recorded Q1: How often do you have a drink containing alc ohol? Monthly or less 01/19/2022 Q2: How many drinks containi ng alcohol do you have on a typical day when you are drinking? 1 or 2 01/19/2022 Q3: How often do you have si x or more drinks on one occasion? Never 01/19/2022 PHQ-2 Answer Date Recorded Patient Health Questionnaire-2 Score 6 08/06/2024 Comments No Sex and Gender Information Value Date Recorded Sex Assigned at Female 05/24/2021 5:51 PM CDT Legal Sex Female 4:29 AM UPPER CASER Gender Identity Female 03/01/2021 5:24 PM CDT Sexual Orientation Not on file Last Filed Vital Signs Vital Sign Reading Time Taken Comments Blood Pressure 137/77 02/04/2025 8:38 AM CDT Pulse 85 02/04/2025 8:38 AM CDT Temperature 36.4 C (97.5 F) 10/31/2024 10:52 AM UPPER CASER Respiratory Rate 16 01/21/2023 7:45 PM CDT Oxygen Saturation 97% 10/31/2024 10:52 AM UPPER CASER Inhaled Oxygen Concentration - - Weight 76.2 kg (168 lb) 02/04/2025 8:38 AM CDT Height 165.1 cm (5' 5) 02/04/2025 8:38 AM CDT Body Mass Index 27.96 02/04/2025 8:38 AM CDT Plan of Treatment Upcoming Encounters Date Type Department Care Team (Late st Contact Info) Description 06/06/2025 9:30 AM CDT Video Visit [facility] [place] [address] [facility] , [facility] [address] [place] [address] Angelica Cabral, T[employer] ATTENDANT-CHEMICAL WORKER [address] [facility] [address] [place] [address] 08/12/2025 8:30 AM CDT Office Visit [facility] Neurosciences [address] , [facility] [address] [place] [address] Praful Benitez MD [address] [place] [address] Health Maintenance Due Date Last Done Comments COLOGUARD (AGES 45-75) - COLON CA SCREENING 1970 CT COLONOGRAPHY - COLON CA SCREENING 1971 FIT - COLON CA SCREENING 1971 FLEX SIG - COLON CA SCREENING 1971 HIV SCREENING 1986 HEPATITIS C SCREENING 05/15/1989 HEPATITIS B VACCINE (1 of 3 - 19+ 3-dose series) 1990 DIABETES-STATIN 2011 ZOSTER VACCINE (1 of 2) 2021 PAP with HPV 02/08/2024 02/07/2019, 02/28, 11/06/2012 DIABETES RETINOPATHY SCREENING 06/28/2024 DIABETES-FOOT EXAM WITH MONOFILAMENT 06/28/2024 DIABETES-HGB A1C 06/28/2024 08/26/2011 COVID-19 VACCINE ( season) 2024 09/28/2021, 03/03/2021, 02/08/2021 DEPRESSION SCREENING 10/30/2024 02/20/2024, 06/15/2023, 05/13/2022 DIABETES - URINE PROTEIN SCREENING 10/30/2024 INFLUENZA VACCINE (#1) 2025 , 07/30/2021, 09/07/2020, Additional history exists DIABETES-SERUM CREATININE 08/15/20252023, 01/21/2023, 10/05/2022, Additional history exists MAMMOGRAM 07/15/2026 07/15/2024, 06/30, 07/15/2024, Additional history exists COLON MONITORING 06/01/2031 06/01/2021, 12/2020, 11/07/2014, Additional history exists COLONOSCOPY - COLON CA SCREENING 06/01/2031 06/01/2021, 06/01/2021, 11/07/2014, Additional history exists Colorectal Cancer Screening 06/01/2031 DTAP/TDAP/TD VACCINES (3 - Td or Tdap) 05/25/2033 05/25/2023, 07/06/2012 PNEUMOCOCCAL VACCINE 50+ Completed 08/02/2022 HIB VACCINE Aged Out No longer eligi ble based on patient's age to complete this topic HPV VACCINE Aged Out No longer eligi ble based on patient's age to complete this topic MENINGOCOCCAL (Group B) VACCINE SHARED DECISION-MAKING Aged Out No longer eligible based on patient's age to complete this topic MENINGOCOCCAL GROUPS A/C/Y/W VACCINE Aged Out No longer eligible based on patient's age to complete this topic Medical Devices Implanted Type Area Parts Room Clerk Device Identifier Shelf Expiration Date Model / Serial / Lot Stent Uret 4.8fr 22cm Pgtl Crv Tpr Tip Implanted:Qty: 1 on 09/15/2016 by Puneet Taveras MD at [facility] Left: [employer] 02/25/2019 [id number] 0 / / [id number] Stent Uret 4.8fr 28cm Pgtl Crv Tpr Tip Implanted:Qty: 1 on 10/16/2017 by Puneet Taveras MD at [facility] Right: [employer] 05/09/2020 [id number] 0 / / [id number] Stent Uret 4.8fr 24cm Pgtl Crv Tpr Tip Implanted:Qty: 1 on 04/16/2019 by Puneet Taveras MD at [facility] Right: [employer]ed 01/20/2022 [id number] 0 / / [id number] Stent Uret 4.8fr 24cm Pgtl Crv Tpr Tip Implanted:Qty: 1 on 04/26/2019 by Jarad Caballero MD at [facility] Right: [employer] 04/02/2021 [id number] / / [id number] Procedures Procedure Name Priority Date/Time Associated Diagnosis Comments COMPREHENSIVE METABOLIC PANEL Routine 08/15/2024 9:07 AM CDT Routine general medical examination at a health care facility MAMMO BILAT SCREENING W AMANDEEP Routine 07/15/2024 Well woman exam with routine gynecological exam ENDOSCOPY, COLON, SCREENING Routine 06/01/2021 7:08 AM CDT PAP IG LB +HPV APTIMA REFLEX 16,18/45 Routine 02/07/2019 2:01 PM CDT Well female exam with routine gynecological exam Special screening examination for human papillomavirus (HPV) from Last 3 Months or Most Recently Relevant to Health Maintenance Results * (ABNORMAL) COMPREHENSIVE METABOLIC PANEL (08/15/2024 9:07 AM CDT) Glucose 84 70 - 99 mg/dL [facility] ACCOUNT BILL BUN 12 7 - 26 mg/dL [facility] ACCOUNT BILL Creatinine 0.83 0.57 - 1.11 mg/dL [facility] ACCOUNT BILL eGFR by CKD-EPI 84(L) >=90 mL/min/1.7 3 m2 [facility] ACCOUNT BILL Sodium 140 136 - 145 mmol/L [facility] ACCOUNT BILL Potassium 4.2 3.5 - 5.1 mmol/L [facility] ACCOUNT BILL Chloride 105 98 - 107 mmol/L [facility] ACCOUNT BILL CO2 28 22 - 29 mmol/L [facility] ACCOUNT BILL Calcium 9.7 8.4 - 10.4 mg/dL [facility] ACCOUNT BILL Protein Total 6.6 6.4 - 8.3 gm/dL [facility] ACCOUNT BILL Albumin 3.8 3.4 - 5.0 gm/dL [facility] ACCOUNT BILL Bilirubin Total 0.6 0.2 - 1.2 mg/dL [facility] ACCOUNT BILL Alkaline Phosphatase 70 40 - 150 U/L [facility] ACCOUNT BILL AST 13 5 - 34 U/L [facility] ACCOUNT BILL ALT 16 0 - 55 U/L [facility] ACCOUNT BILL Blood BLOOD SPECIMEN / Unknown 08/15/2024 9:07 AM CDT 08/15/2024 Narrative [facility] ACCOUNT BILL - 08/15/2024 3:09 PM CDT Performed at: [address] [place] [address] [address], [place], [place] [id number] Physician Credentialing Specialist: Susan Cali [facility], Phone: [phone] us Chuck Ashraf DO LAB - CHEMISTRY ORDERABLES F inal Result [facility] ACCOUNT BILL [address] [place] [address] * Mammo Bilat Screening W Amandeep (07/15/2024) Anatomical Region Laterality Modality Breast Bilateral Mammography 07/15/2024 us Robbin Zarco MD MAMMO ORDERABLES Final Resu lt * ENDOSCOPY, COLON, SCREENING (06/01/2021 7:08 AM CDT) Report Endoscopy POC _ Patient Name: Graciela Arauz Procedure Date: 06/01/2021 7:08 AM Date of : 1970 Admit Type: Outpatient Age: 51 Gender: Female Attending MD: Eliud Pacheco MD _ Procedure: Colonoscopy Indications: Screening for colorectal malignant neoplasm, Last colonoscopy: 2014 Providers: Eliud Pacheco MD (Doctor) Referring MD: Tracey Silva (Referring MD) Medicines: Monitored Anesthesia Care Complications: No immediate complications. _ Procedure: Pre-Anesthesia Assessment: - Prior to the procedure, a History and Physical was performed, and patient medications and allergies were reviewed. The patient is competent. The risks and benefits of the procedure and the sedation options and risks were discussed with the patient. All questions were answered and informed consent was obtained. Patient identification and proposed procedure were verified by the physician, the nurse and the fire alarm mechanic in the procedure room. Mental Status Examination: alert and oriented. Airway Examination: normal oropharyngeal airway and neck mobility. Respiratory Examination: clear to auscultation. CV Examination: normal. Prophylactic Antibiotics: The patient does not require prophylactic antibiotics. Prior Anticoagulants: The patient has taken no previous anticoagulant or antiplatelet agents except for aspirin. ASA Grade Assessment: III - A patient with severe systemic disease. After reviewing the risks and benefits, the patient was deemed in satisfactory condition to undergo the procedure. The anesthesia plan was to use monitored anesthesia care (MAC). Immediately prior to administration of medications, the patient was re-assessed for adequacy to receive sedatives. The heart rate, respiratory rate, oxygen saturations, blood pressure, adequacy of pulmonary ventilation, and response to care were monitored throughout the procedure. The physical status of the patient was re-assessed after the procedure. After I obtained informed consent, the scope was passed under direct vision. Throughout the procedure, the patient's blood pressure, pulse, and oxygen saturations were monitored continuously. The Colonoscope was introduced through the anus and advanced to the cecum, identified by appendiceal orifice and ileocecal valve. The colonoscopy was performed without difficulty. The patient tolerated the procedure well. The quality of the bowel preparation was excellent. The ileocecal valve, appendiceal orifice, and rectum were photographed. Findings: Hemorrhoids were found on perianal exam. The rectum, sigmoid colon, descending colon, transverse colon, ascending colon, cecum, appendiceal orifice and ileocecal valve appeared normal. _ Impression: - Non thrombosed external hemorrhoids found on perianal exam. - The rectum, sigmoid colon, descending colon, transverse colon, ascending colon, cecum, appendiceal orifice and ileocecal valve are normal. - No specimens collected. Recommendation: - Repeat colonoscopy in 10 years for surveillance. - Return to primary care physician as previously scheduled. - Resume previous diet. - Resume aspirin at prior dose today. - Patient has a contact number available for emergencies. The signs and symptoms of potential delayed complications were discussed with the patient. Return to normal activities tomorrow. Written discharge instructions were provided to the patient. Procedure Code(s): --- Professional --- 21202, Colonoscopy, flexible; diagnostic, including collection of specimen(s) by brushing or washing, when performed (separate procedure) --- Technical --- 49044, Colonoscopy, flexible; diagnostic, including collection of specimen(s) by brushing or washing, when performed (separate procedure) Diagnosis Code(s): --- Professional --- Z12.11, Encounter for screening for malignant neoplasm of colon K64.9, Unspecified hemorrhoids --- Technical --- Z12.11, Encounter for screening for malignant neoplasm of colon K64.9, Unspecified hemorrhoids CPT copyright 2019 [employer]. All rights reserved. The codes documented in this report are preliminary and upon tube teller review may be revised to meet current compliance requirements. Dr. Eliud Pacheco MD Eliud Pacheco MD 06/01/2021 8:08:19 AM This report has been signed electronically. Number of Addenda: 0 Note Initiated On: 06/01/2021 7:08 AM [facility] ENDOSCOPY 06/01/2021 7:08 AM CDT Eliud Pacheco MD GI PROCEDURE ORDERABLES Con helen Result - Final [facility] [place] [address] * PAP IG LB +HPV APTIMA REFLEX 16,18/45 (02/07/2019 2:01 PM CDT) Diagnosis [facility] ACCOUNT BILL Comment:NEGATIVE FOR INTRAEP ITHELIAL LESION OR MALIGNANCY. Specimen Adequacy [facility] ACCOUNT BILL Comment: Satisfactory for evaluation. Endocervical and/or squamous metaplastic cells (endocervical component) are present. Clinician Provided ICD10 [facility] ACCOUNT BILL Comment: Z01.419 Z11.51 Performed by [facility] ACCOUNT BILL Comment:Yomi Forbes, Cytot echnologist (ASCP) Comment . [facility] ACCOUNT BILL Note [facility] ACCOUNT BILL Comment: The Pap smear is a screening test designed to aid in the detection of premalignant and malignant conditions of the uterine cervix. It is not a diagnostic procedure and should not be used as the sole means of detecting cervical cancer. Both false-positive and false-negative reports do occur. . IGLBP CPT Code Automation [facility] ACCOUNT BILL Comment: This liquid based ThinPrep(R) pap test was screened with the use of an image guided system. Human papillomavirus Aptima Negative Negative [facility] ACCOUNT BILL Comment: This test detects fourteen high-risk HPV types (16/18/31/33/35/39/45/ 51/52/56/58/59/66/68) without differentiation. PART OF UTERINE CERVIX / Unknown 02/07/2019 2:01 PM CDT 02/07/2019 Narrative [facility] ACCOUNT BILL - 02/10/2019 11:05 PM CDT Source.............Cervix;Endocervix No. of containers..01 ThinPrep Vial Resulting Agency Comment [facility] [address] [place] [id number] Robbin Zarco MD LAB - PATHOLOGY/CYTOLOGY OR DERABLES Final Result [facility] ACCOUNT BILL [address] [place] [address] from Last 3 Months or Most Recently Relevant to Health Maintenance Insurance [facility] Advance Directives * Full Code (Latest Code Status on File) Date Activated Date Inactivated Comments 08/27/2019 11:51 AM 08/28/2019 4:12 PM * Full Code Date Activated Date Inactivated Comments 04/26/2019 2:04 PM 04/27/2019 11:23 AM * Full Code Date Activated Date Inactivated Comments 04/18/2019 10:01 PM 04/20/2019 11:50 AM * Full Code Date Activated Date Inactivated Comments 04/16/2019 12:03 AM 04/16/2019 5:28 PM * Full Code Date Activated Date Inactivated Comments 03/13/2019 12:17 AM 03/16/2019 4:13 PM Care Teams Director Account Management Relationship Specialty [place] [id number] [address] PCP - OBGYN 02/17/09 Chuck Ashraf DO [facility] [place] [address] PCP - General Family Medicine 06/15/23
--- OUTSIDE RECORDS SUMMARY | 2025-05-25 14:42 | XMS_ITS | Clinical Summary ---
Author Organization [facility] Address [address] [place] [address] Care Team Providers Care Rn Anesthesiology Name Role Phone Puneet Taveras MD Unavailable Jarad Caballero MD Unavailable Chuck Ashraf DO Primary Care Provider [phone] Allergies Active Allergy Reactions Criticality Noted Date Comments Adhesive Blisters High 04/22/2024 Blisters around mouth, under eye irritation. Pt thinks it's likely from tape used during surgery. Azithromycin Hives Medium 03/22/2018 Levofloxacin Hives Medium 03/22/2018 Morphine Hallucinations Medium 03/22/2018 Shellfish Containing Products Hives Medium 03/22/2018 Sulfa (Sulfonamide Antibiotics) Hives Medium 03/22/2018 Trimethobenzamide Swelling Medium 02/02/[address] (PROTONIX) 40 mg EC tablet Take 1 tablet (40 mg total) by mouth daily Active valACYclovir (VALTREX) 1 gram tablet Take 1 tablet (1,000 mg total) by mouth 2 (two) times a day as needed Active albuterol HFA (PROVENTIL HFA,VENTOLIN HFA,PROAIR HFA) 90 mcg/actuation inhaler Inhale 2 puffs every 6 (six) hours as needed for wheezing Active SUMAtriptan (IMITREX) 50 mg tabletIndications: Migraine Take 1 tablet (50 mg total) by mouth once as needed for migraine May repeat dose once in 2 hours if no relief. Do not exceed 2 doses in 24 hours. Active linaCLOtide (LINZESS) 290 mcg capsule Take 1 capsule (290 mcg total) by mouth daily Active montelukast (SINGULAIR) 10 mg tablet Take 1 tablet (10 mg total) by mouth nightly Active ondansetron ODT (ZOFRAN-ODT) 4 mg disintegrating tablet Take 1 tablet (4 mg total) by mouth every 6 (six) hours as needed for nausea or vomiting 24 tablet 10/05/20 22 Active buPROPion XL (WELLBUTRIN XL) 300 mg 24 hr tablet Take 1 tablet (300 mg total) by mouth daily Active cyanocobalamin (Vitamin B-12) 1,000 mcg tabletIndications: Prevention of Vitamin B12 Deficiency Take 1 tablet (1,000 mcg total) by mouth daily Active calcium carbonate-vitamin D3 (CALTRATE 600 + D) 1500 mg (600 mg elemental) -400 units per tablet Take 1 tablet by mouth nightly Active glucosamine-chondr oitin 500-400 mg tablet Take 2 tablets by mouth daily Active lisinopriL (PRINIVIL,ZESTRIL) 20 mg tablet Take 1 tablet (20 mg total) by mouth daily Active naltrexone (DEPADE) 50 mg tablet Take 1 tablet (50 mg total) by mouth daily Active galcanezumab-gnlm (EMGALITY SYRINGE SUBQ) Inject under the skin every 30 (thirty) days Active hydroCHLOROthiazid e (HYDRODIURIL) 25 mg tablet Take 1 tablet (25 mg total) by mouth daily Active potassium gluconate 595 mg (99 mg) tablet 1 tablet (595 mg total) daily Active HYDROcodone-acetam inophen (NORCO) 5-325 mg per tabletIndications: Pain Take 1 tablet by mouth every 6 (six) hours as needed Active alclomethasone (ACLOVATE) 0.05 % ointment Apply 1 Application topically 2 (two) times a day as needed Active oxyBUTYnin (DITROPAN) 5 mg tablet Take 1 tablet (5 mg total) by mouth 3 (three) times a day Active Active Problems Problem Noted Date Diagnosed Date Pyelonephritis 04/24/2024 Severe sepsis 04/07/2024 Sepsis without acute organ d ysfunction, due to unspecified organism 09/28/2023 Kidney stone 09/19/2023 Ureteral stone with hydronephrosis 02/17/2022 Calculus of ureter 01/31/2022 Overview (01/31/2022): Added automatically from request for surgery [id number] Clinical diagnosis of COVID-19 06/24/2021 Surgical History Surgery Date Site/Laterality Comments SHOULDER SURGERY Right LITHOTRIPSY HYSTERECTOMY UTERINE SUSPENSION FOOT SURGERY Right plantar fascitis KNEE ARTHROSCOPY Right meniscus CHOLECYSTECTOMY Medical History Medical History Date Comments Migraine GERD (gastroesophageal reflux disease) Herpes simplex Kidney stone stones IBS (irritable bowel syndrome) Hypertension Asthma exercise induced Atrial fibrillation (HCC) Family History Medical History Relation Name Comments Heart attack Father Hypertension Father Lung cancer Mother Relation Name Status Comments Father Mother Social History Tobacco Use Types Packs/Day Years Used Date Smoking Tobacco: Never Passive Smoke Exposure: Never Smokeless Tobacco: Never Tobacco Cessation:Counseling Given: Not Answered Alcohol Use Standard Drinks/Week Comments Yes 0 (1 standard drink = 0.6 oz pur e alcohol) Ceradisities Answer Date Recorded In the past 12 months has e electric, gas, oil, or water company threatened to shut off services in your home? No 04/25/2024 Social Connection and Isolat ion Panel [NHANES] Answer Date Recorded In a typical week, how many times do you talk on the phone with family, friends, or neighbors? More than three times a week 04/25/2024 How often do you get togethe r with friends or relatives? More than three times a week 04/25/2024 How often do you attend chur or alevism services? More than 4 times per year 04/25/2024 Do you belong to any clubs o r organizations such as congregation groups, unions, fraternal or athletic groups, or school groups? No 04/25/2024 How often do you attend meet ings of the clubs or organizations you belong to? Never 04/25/2024 Are you , , di vorced, , never , or living with a partner? 04/25/2024 AUDIT-C Answer Date Recorded Q1: How often do you have a drink containing alc ohol? Monthly or less 04/25/2024 Q2: How many drinks containi ng alcohol do you have on a typical day when you are drinking? 1 or 2 04/25/2024 Q3: How often do you have si x or more drinks on one occasion? Less than monthly 04/25/2024 Overall Financial Resource Strain (CARDIA) Answe r Date Recorded How hard is it for you to pa y for the very basics like food, housing, medical care, and heating? Not very hard 04/25/2024 Hunger Vital Sign Answer Date Recorded Within the past 12 months, y ou worried that your food would run out before you got the money to buy more. Never true 04/25/20 24 Within the past 12 months, t he food you bought just didn't last and you didn't have money to get more. Never true 04/25/2024 PRAPARE - Transportation Answer Date Re corded In the past 12 months, has l ack of transportation kept you from medical appointments or from getting medications? No 03/31 In the past 12 months, has l ack of transportation kept you from meetings, work, or from getting things needed for daily living? No 04/25/2024 Housing Stability Vital Sign Answer Henrry e Recorded In the last 12 months, was t here a time when you were not able to pay the mortgage or rent on time? No 09/29/2023 Number of Places Lived in the Last Year Not on f ile 09/29/2023 In the last 12 months, was t here a time when you did not have a steady place to sleep or slept in a half-way (including now)? No 09/29/2023 Housing Stability Vital Sign Answer Henrry e Recorded In the last 12 months, was t here a time when you were not able to pay the mortgage or rent on time? No 04/25/2024 In the past 12 months, how m any times have you moved where you were living? 1 04/25/2024 At any time in the past 12 m [facility], were you homeless or living in a half-way (including now)? No 04/25/2024 Personal Safety Answer Date Recorded Have you ever been in or are you currently in a harmful physical or emotional relationship or is someone making you feel afraid or unsafe? 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 Gender Identity Not on file Sexual Orientation Not on file Obstetrics History Last Filed Vital Signs Vital Sign Reading Time Taken Comments Blood Pressure 131/86 04/26/2024 7:50 AM CDT Pulse 72 04/26/2024 7:50 AM CDT Temperature 36.6 C (97.9 F) 04/26/2024 7:50 AM CDT Respiratory Rate 16 04/26/2024 7:50 AM CDT Oxygen Saturation 99% 04/26/2024 7:50 AM CDT Inhaled Oxygen Concentration - - Weight 82.9 kg (182 lb 12.8 oz) 024 11:30 PM CDT Height 167.6 cm (5' 5.98) 04/24/2024 1 1:30 PM CDT Body Mass Index 29.52 04/24/2024 11:30 PM CDT Plan of Treatment Health Maintenance Due Date Last Done Comments Colon Cancer Screening-Colonoscopy 1971 Depression Screening 1971 Hepatitis C Screening 1971 Hepatitis B Screening 1989 Regular Well Visit/Exam 18-64 1989 Pneumococcal vaccine <65 (1 of 2 - PCV) 1990 Zoster Vaccine (1 of 2) 2021 Covid-19 Vaccine (4 - 2023-2 5 season) 2024 09/28/2021, 03/03/2021, 02/08/2021 Influenza Vaccine (#1) 2025 , 07/30/2021, 09/07/2020, Additional history exists Breast Cancer Screening-Mammogram 07/15/2025 07/15/2024, 07/15/2024, 07/15/2024, Additional history exists DTaP/Tdap/Td Vaccine (3 - Td or Tdap) 05/25/2033 05/25/2023, 07/06/2012 Medical Devices Implanted Type Area Bone Puller Device Identifier Shelf Expiration Date Model / Serial / Lot Stent Ureteral Inlay [place] Polymer Phreecoat Taper L26 Cm Od4.7 Fr Pusher Fluoro Marker Atraumatic Insertion Sterile Latex Free Disposable [place] - [id number] - [id number] Implanted:Qty: 1 on 03/23/2018 by Puneet Taveras MD at [facility] Right: Urethra [facility] [id number] 11/23/2021 [id number] / [id number] / [id number] [employer] Universa 5fr 24cm Radiopaque Positioner Braid Tether Firm 2 [id number] - [id number] Implanted:Qty: 1 on 02/19/2022 by Jarad Caballero MD at [facility] Right: Ureter [employer] 09/01/2024 [id number] / / [id number] [employer] Universa 5fr 24cm Radiopaque Positioner Braid Tether Firm 2 [id number] - [id number] Implanted:Qty: 1 on 02/19/2022 by Jarad Caballero MD at [facility] Left: Ureter [employer] 06/28/2024 [id number] / / [id number] [employer] Brad Contour 6fr 26cm Large Inner Lumen Low Profile Bladder Dar Taper Latex Free 180-223 - [id number] Implanted:Qty: 1 on 04/07/2024 by Kevin Hogue MD at [facility] Right: Urethra [employer] Brad 12/06/2026 [id number] 30 / / [id number] [employer] Brad Polaris Ultra Nautilus 5fr 2.1fr 24cm 2 Durometer Taper Tip Low Latex Free 192-122 - [id number] Implanted:Qty: 1 on 04/22/2024 by Puneet Taveras MD at [facility] Right: Ureter [employer] Brad 12/07/2026 [id number] 20 / / [id number] Explanted Type Area Bone Puller Device Identifier Shelf Expiration Date Model / Serial / Lot [employer] [id number] Universa 5fr 26cm Radiopaque Positioner Braid Tether Firm 2 - [id number] Implanted:Qty: 1 on 02/15/2022 by Puneet Taveras MD at [facility] Explanted:Qty: 1 on 02/19/2022 at [facility] Left: Ureter [employer] 11/08/2024 [id number] / / [id number] [employer] [id number] Universa 5fr 26cm Radiopaque Positioner Braid Tether Firm 2 - [id number] Implanted:Qty: 1 on 02/15/2022 by Puneet Taveras MD at [facility] Explanted:Qty: 1 on 02/19/2022 at [facility] Right: Ureter [employer] 09/07/2024 [id number] / / [id number] [employer] Brad Polaris Ultra Nautilus 5fr 2.1fr 24cm 2 Durometer Taper Tip Low Latex Free 192-122 - [id number] Implanted:Qty: 1 on 09/29/2023 by Puneet Taveras MD at [facility] Explanted:Qty: 1 on 04/22/2024 by Puneet Taveras MD at [facility] Right: Ureter [employer] Brad 06/04/2026 [id number] Insurance [facility] CHOICE PLUS [facility] CORE [employer] [facility] CHOICE PLUS Advance Directives For more information, please contact: [phone] * Full Code (Latest Code Status on File) Date Activated Date Inactivated Comments 04/24/2024 10:44 PM 04/26/2024 2:02 PM * Full Code Date Activated Date Inactivated Comments 09/28/2023 8:36 PM 09/30/2023 8:04 PM * Full Code Date Activated Date Inactivated Comments 02/17/2022 9:05 PM 02/19/2022 8:56 PM * Full Code Date Activated Date Inactivated Comments 03/23/2018 3:47 AM 03/23/2018 10:17 PM Care Teams Rn Anesthesiology Relationship Specialty Start Date End Date Chuck Ashraf DO [address] [place] [address] PCP - General Family Medicine 09/20/23 Puneet Taveras MD Consulting Physician Urology 02/15/22 Jarad Caballero MD [address] [place] [address] [facility] [address] [place] [address] Consulting Physician Urology 02/19/22
--- OUTSIDE RECORDS SUMMARY | 2025-05-25 14:42 | XMS_ITS | Encounter Summary ---
Author Organization [employer] Address 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 Gender Identity Not on file Sexual Orientation Not on file documented as of this encounter Plan of Treatment Not on file documented as of this encounter Visit Diagnoses Diagnosis Sprain of ankle, unspecified site- Primary documented in this encounter Additional Health Concerns Infection Onset Date Last Indicated Resolved Time MRSA Comment:Resolved per Type and Duration of Precautions Recommended for Selected Infections and Conditions document 2023 update 04/16/2020 04/16/2020 07/15/20 24 11:36 AM CDT documented as of this encounter Care Teams Asic Design Engineer Relationship Specialty Start Date End Date Tracey Silva MD PCP - General Internal Medicine 12/29/14 08/02/23 documented as of this encounter
--- OUTSIDE RECORDS SUMMARY | 2025-05-25 14:42 | XMS_ITS | Referral Summary ---
Author Organization [facility] Address [address] [place] [address] Care Team Providers Care Food Service Worker Hospital Name Role Phone Puneet Taveras MD Unavailable Jarad Caballero MD Unavailable Chuck Ashraf DO Primary Care Provider [phone] Allergies Active Allergy Reactions Criticality Noted Date [...] (01/31/2022): Added automatically from request for surgery [id number] Clinical diagnosis of COVID-19 06/24/2021 Social History Tobacco Use Types Packs/Day Years Used Date Smoking Tobacco: Never Passive Smoke Exposure: Never Smokeless Tobacco: Never Tobacco Cessation:Counseling Given: Not Answered Alcohol Use Standard Drinks/Week Comments Yes 0 (1 standard drink = 0.6 oz pur e alcohol) Socially [employer] Utilities Answer Date Recorded In the past 12 months has e [employer], gas, oil, or water [employer] threatened to shut off services in your [...] week 04/25/2024 How often do you attend [facility] or method[facility] services? More than 4 times per year 04/25/2024 Do you belong to any clubs o r organizations such as restorationist groups, unions, fraternal or athletic groups, or [...] place to sleep or slept in a longterm (including now)? No 09/29/2023 Housing Stability Vital Sign Answer Henrry e Recorded In the last 12 months, was t here a time when you were not able to pay the mortgage or rent on time? No 04/25/2024 In the past 12 months, how m any times have you moved where you were living? 1 04/25/2024 At any time in the past 12 m [facility], were you homeless or living in a longterm (including now)? No 04/25/2024 Personal Safety Answer Date Recorded Have you ever been in or are you currently in a harmful physical or emotional relationship or is someone making you feel afraid or unsafe? 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 Gender Identity Not on file Sexual Orientation Not on file Last Filed [...] 04/24/2024 11:30 PM CDT Plan of Treatment Not on file Medical Devices Implanted Type Area Economic Analysis Director Device Identifier Shelf Expiration Date Model / Serial / Lot Stent Ureteral Inlay [place] Polymer Phreecoat Taper L26 Cm Od4.7 Fr Pusher Fluoro Marker Atraumatic Insertion Sterile Latex Free Disposable [place] - [id number] - [id number] Implanted:Qty: 1 on 03/23/2018 by Puneet Taveras MD at [facility] Right: Urethra [facility] [id number] 11/23/2021 [id number] / [id number] / [id number] [employer] Universa 5fr 24cm Radiopaque Positioner Braid Tether Firm 2 [id number] - [id number] Implanted:Qty: 1 on 02/19/2022 by Jarad Caballero MD at [facility] Right: Ureter [employer] 09/01/2024 [id number] / / [id number] [employer] Universa 5fr 24cm Radiopaque Positioner Braid Tether Firm 2 [id number] - [id number] Implanted:Qty: 1 on 02/19/2022 by Jarad Caballero MD at [facility] Left: Ureter [employer] 06/28/2024 [id number] / / [id number] [employer] Brad Contour 6fr 26cm Large Inner Lumen Low Profile Bladder Dar Taper Latex Free 180-223 - [id number] Implanted:Qty: 1 on 04/07/2024 by Kevin Hogue MD at [facility] Right: Urethra [employer] Brad 12/06/2026 [id number] 30 / / [id number] [employer] Brad Polaris Ultra Nautilus 5fr 2.1fr 24cm 2 Durometer Taper Tip Low Latex Free 192-122 - [id number] Implanted:Qty: 1 on 04/22/2024 by Puneet Taveras MD at [facility] Right: Ureter [employer] 12/07/2026 [id number] 20 / / [id number] Explanted Type Area Economic Analysis Director Device Identifier Shelf Expiration Date Model / Serial / Lot [employer] [id number] Universa 5fr 26cm Radiopaque Positioner Braid Tether Firm 2 - [id number] Implanted:Qty: 1 on 02/15/2022 by Puneet Taveras MD at [facility] Explanted:Qty: 1 on 02/19/2022 at [facility] Left: Ureter [employer] 11/08/2024 [id number] / / [id number] [employer] [id number] Universa 5fr 26cm Radiopaque Positioner Braid Tether Firm 2 - [id number] Implanted:Qty: 1 on 02/15/2022 by Puneet Taveras MD at [facility] Explanted:Qty: 1 on 02/19/2022 at [facility] Right: Ureter [employer] 09/07/2024 [id number] / / [id number] [employer] Brad Polaris Ultra Nautilus 5fr 2.1fr 24cm 2 Durometer Taper Tip Low Latex Free 192-122 - [id number] Implanted:Qty: 1 on 09/29/2023 by Puneet Taveras MD at [facility] Explanted:Qty: 1 on 04/22/2024 by Puneet Taveras MD at [facility] Right: Ureter [employer] Brad 06/04/2026 [id number] / / [id number] Insurance [facility] CHOICE PLUS [facility] CORE [employer] [facility] CHOICE PLUS [place] [id number] [facility] CHOICE PLUS [place] [id number] Advance Directives For more information, please contact: [phone] * Full Code (Latest Code Status on File) Date Activated Date Inactivated Comments 04/24/2024 10:44 PM 04/26/2024 2:02 PM * Full Code Date Activated Date Inactivated Comments 09/28/2023 8:36 PM 09/30/2023 8:04 PM * Full Code Date Activated Date Inactivated Comments 02/17/2022 9:05 PM 02/19/2022 8:56 PM * Full Code Date Activated Date Inactivated Comments 03/23/2018 3:47 AM 03/23/2018 10:17 PM Care Teams Food Service Worker Hospital Relationship Specialty Start Date End Date Chuck Ashraf DO [address] [place] [address] PCP - General Family Medicine 09/20/23 Puneet Taveras MD Consulting Physician Urology 02/15/22 Jarad Caballero MD [address] [place] [address] [address] Consulting Physician Urology 02/19/22
[2025-05-25 14:52] LABS: Alanine Aminotransferase 19 U/L (6-35); Albumin Level 4.0 g/dL (3.5-5.1); Alkaline Phosphatase 71 U/L (38-126); Anion Gap 8 mmol/L (4-12); Aspartate Amino Transferase 26 U/L (14-36); Bilirubin,Total 0.5 mg/dL (0.2-1.3); Blood Urea Nitrogen 18 mg/dL (7-17); Calcium 9.1 mg/dL (8.4-10.2); Carbon Dioxide 25 mmol/L (22-30); Chloride 106 mmol/L (98-107); Estimated CRCL calculation 63 ml/min; Estimated Glomerular Filt Rate > 60; Glucose 90 mg/dL (65-110); Lipase 29 U/L (23-300); Potassium 3.8 mmol/L (3.4-5.0); Sodium 139 mmol/L (137-145); Total Protein 7.1 g/dL (6.3-8.2)
--- NOTE | 2025-05-25 15:00 | ED.NAVMDI ---
HPI - Nausea/Vomiting/Diarrhea General Chief complaint: Arrhythmia/Palpitations <Angelica Vizcaino PA-C - Last Filed: 05/25/25 18:31> Stated complaint: afib <GIAN Livingston Last Filed: 05/25/25 18:31> Time Seen by Provider: 05/25/25 14:11 <Angelica Vizcaino PA-C - Last Filed: 05/25/25 18:31> Source: patient <GIAN Livingston Last Filed: 05/25/25 18:31> Mode of arrival: ambulatory <GIAN Livingston Last Filed: 05/25/25 18:31> Limitations: no limitations <GIAN Livingston Last Filed: 05/25/25 18:31> History of Present Illness HPI Narrative: This is a 55 year old female that presents to the ER for nausea and vomiting. Reports she was outside today and started to feel unwell. Reports nausea and vomiting, lower abdominal pain. Reports history of many kidney stones as well as kidney infections. Denies fevers, chest pain, shortness of breath. <GIAN Livingston Last Filed: 05/25/25 18:31> Related Data Allergies/Adverse reactions: Allergies Allergy/AdvReac Type Severity Reaction Status Date / Time Sulfa (Sulfonamide Allergy Intermediate Unknown Verified 05/25/25 14:58 Antibiotics) adhesive Allergy Mild Unknown Verified 05/25/25 14:58 azithromycin Allergy Mild Unknown Verified 05/25/25 14:58 levofloxacin (From Levaquin) Allergy Mild Unknown Verified 05/25/25 14:58 morphine Allergy Mild Unknown Verified 05/25/25 14:58 shellfish derived Allergy Mild Unknown Verified 05/25/25 14:58 trimethobenzamide (From Allergy Mild Unknown Verified 05/25/25 14:58 Tigan) <GIAN Livingston Last Filed: 05/25/25 18:31> Review of Systems Review of Systems: All systems reviewed & are unremarkable except as noted in HPI and below <GIAN Livingston Last Filed: 05/25/25 18:31> FORMERLY [facility], [facility] Past Medical History Medical History: Medical History (Updated 05/25/25 @ 18:20 by Angelica Vizcaino PA-C) History of diabetes mellitus History of gastroesophageal reflux (GERD) History of hypertension <Angelica Vizcaino PA-C - Last Filed: 05/25/25 18:31> Exam Narrative: GENERAL: Well-appearing, well-nourished, and in no acute distress. HEAD: Normocephalic, atraumatic. EYES: EOMI. ENT: Nares clear, no rhinorrhea or epistaxis. Mucous membranes moist. Oropharynx without tonsillar hypertrophy exudate or other lesions. CHEST: Clear to auscultation. No respiratory distress. No wheezes rales or rhonchi HEART: Regular rate and rhythm. No murmur heard. Normal peripheral pulses. ABDOMEN: Soft, nondistended, normal active bowel sounds. Tender to palpation throughout the lower abdomen, without guarding EXTREMITIES: Normal range of motion. No edema. SKIN: Warm, dry, no rash. NEURO: No focal deficits. Alert and oriented x3. PSYCH: Normal mood and affect <Angelica Vizcaino PA-C - Last Filed: 05/25/25 18:31> Course Course Emergency Course: Patient updated on workup and recommendation for admission <Angelica Vizcaino PA-C - Last Filed: 05/25/25 18:31> JOB PLACEMENT SPECIALIST/PA Physician Supervision For this patient encounter, I reviewed the JOB PLACEMENT SPECIALIST or PA documentation, treatment plan, and medical decision making; and I had [id number] time with this patient. <Uday Coleman MD - Last Filed: 05/25/25 18:25> Consultations Consultation #1: Spoke with Dr. Sexton about patient and workup who will consult <Angelica Vizcaino PA-C - Last Filed: 05/25/25 18:31> Date: 05/25/25 <Angelica Vizcaino PA-C - Last Filed: 05/25/25 18:31> Consultation #2: Spoke with hospitalist about patient and workup who accepts admission <Angelica Vizcaino PA-C - Last Filed: 05/25/25 18:31> Date: 05/25/25 <Angelica Vizcaino PA-C - Last Filed: 05/25/25 18:31> Vital Signs Vital signs: Vital Signs Temperature 97.5 F L 05/25/25 12:08 Pulse Rate 63 05/25/25 12:08 Respiratory Rate 16 05/25/25 12:08 Blood Pressure 136/90 05/25/25 12:08 Pulse Oximetry 100 05/25/25 12:08 Oxygen Delivery Room Air 05/25/25 12:08 Temperature 97.5 F L 05/25/25 12:08 Pulse Rate 62 05/25/25 14:30 Respiratory Rate 14 05/25/25 14:30 Blood Pressure 136/90 05/25/25 12:08 Pulse Oximetry 98 05/25/25 14:30 Oxygen Delivery Room Air 05/25/25 12:08 <Angelica Vizcaino PA-C - Last Filed: 05/25/25 18:31> Vital Signs Temperature 97.5 F L 05/25/25 12:08 Pulse Rate 63 05/25/25 12:08 Respiratory Rate 16 05/25/25 12:08 Blood Pressure 136/90 05/25/25 12:08 Pulse Oximetry 100 05/25/25 12:08 Oxygen Delivery Room Air 05/25/25 12:08 Temperature 97.5 F L 05/25/25 12:08 Pulse Rate 62 05/25/25 14:30 Respiratory Rate 14 05/25/25 14:30 Blood Pressure 136/90 05/25/25 12:08 Pulse Oximetry 98 05/25/25 14:30 Oxygen Delivery Room Air 05/25/25 12:08 <Uday Coleman MD - Last Filed: 05/25/25 18:25> MDM - Nausea/Vomiting/Diarrhea MDM Narrative Medical decision making narrative: Patient presents to the emergency department for abdominal pain, nausea, vomiting. She is afebrile and nontoxic appearing. Her vitals are stable. CBC with leukocytosis to 16.6. Metabolic panel without concerning findings. Urine with evidence of infection. This was sent for culture. Patient started on IV antibiotics. CT abdomen pelvis shows bilateral nephrolithiasis. Dilated appendix measuring up to 8 mm. Can be normal for the patient versus early, acute appendicitis. Spoke with Dr. Sexton about patient and workup who will consult. Spoke with hospitalist about patient and workup who accepts admission <Angelica Vizcaino PA-C - Last Filed: 05/25/25 18:31> Differential Diagnosis Differential diagnosis: Likely food poisoning, gastroenteritis, dehydration and other (UTI, kidney stone, appendicitis) <Angelica Vizcaino PA-C - Last Filed: 05/25/25 18:31> Lab Data Attestation: I reviewed the patient's lab results. <Angelica Vizcaino PA-C - Last Filed: 05/25/25 18:31> Result diagrams: 05/25/25 14:25 05/25/25 14:25 <Angelica Vizcaino PA-C - Last Filed: 05/25/25 18:31> Labs: Lab Results 05/25/25 05/25/25 Range/Units 14:16 14:25 WBC 16.6 H (4.5-10.0) K/mm3 RBC 4.67 (4.2-5.4) M/mm3 Hgb 13.9 (12.0-15.0) g/dL Hct 40.6 (37.0-47.0) % MCV 86.9 (80-100) fl MCH 29.8 (26-34) pg MCHC 34.2 (32-36) g/dl RDW 12.7 (11.5-14.5) % Plt Count 221 (150-375) k/mm3 MPV 9.1 (7.4-10.4) fl Immature Gran % (Auto) 0.6 H (0-0.5) % Neut % (Auto) 88.8 H (45.5-73.1) % Lymph % (Auto) 4.9 L (18.3-44.2) % [place] % (Auto) 5.3 (2.6-8.5) % Eos % (Auto) 0.2 (0-4.4) % Baso % (Auto) 0.2 (0.2-1.2) % Lymph # (Auto) 0.81 L (0.9-3.2) K/mm3 [place] # (Auto) 0.9 H (0.1-0.6) K/mm3 Eos # (Auto) 0.0 (0-0.3) K/mm3 Baso # (Auto) 0.0 (0.0-0.1) K/mm3 Abs Immat Gran (auto) 0.10 H (0.00-0.031) K/mm3 Absolute Neuts (auto) 14.7 H (1.3-6.7) K/mm3 Absolute Nucleated RBC 0.000 (0.0-0.012) K/mm3 Nucleated RBC % 0.0 (0.0-0.2) % Sodium 139 (137-145) mmol/L Potassium 3.8 (3.4-5.0) mmol/L Chloride 106 (98-107) mmol/L Carbon Dioxide 25 (22-30) mmol/L Anion Gap 8 (4-12) mmol/L BUN 18 H (7-17) mg/dL Creatinine 0.83 (0.7-1.0) mg/dL Estim Creat Clear Calc 63 ml/min Estimated GFR > 60 (59 - ) Glucose 90 (65-110) mg/dL Calcium 9.1 (8.4-10.2) mg/dL Total Bilirubin 0.5 (0.2-1.3) mg/dL AST 26 (14-36) U/L ALT 19 (6-35) U/L Alkaline Phosphatase 71 (38-126) U/L Total Creatine Kinase 52 (30-135) U/L Troponin I < 0.012 (0.000-0.034) ng/mL Total Protein 7.1 (6.3-8.2) g/dL Albumin 4.0 (3.5-5.1) g/dL Lipase 29 (23-300) U/L Urine Color Dark yellow (Yellow) Urine Appearance Cloudy H (Clear) Urine pH 5.5 (5.0-9.0) Ur Specific [place] 1.018 (1.001-1.035) Urine Protein Trace (Negative) mg/dL Urine Glucose (UA) Negative (Negative) mg/dL Urine Ketones Trace H (Negative) mg/dL Ur Blood (Man) Negative (Negative) Urine Nitrate Positive H (Negative) Urine Bilirubin Negative (Negative) Urine Urobilinogen 1.0 (<2.0) mg/dL Leukocyte Esterase Rfl 2+ H (Negative) DONALD/UL Urine RBC 0-2 (0-2) /hpf Urine WBC 51-100 H (0-3) /hpf Ur Squamous Epith Cells Occasional (Few) /hpf Urine Bacteria 4+ H /hpf Urine Casts 0-2 <Angelica Vizcaino PA-C - Last Filed: 05/25/25 18:31> Lab Results 05/25/25 05/25/25 Range/Units 14:16 14:25 WBC 16.6 H (4.5-10.0) K/mm3 RBC 4.67 (4.2-5.4) M/mm3 Hgb 13.9 (12.0-15.0) g/dL Hct 40.6 (37.0-47.0) % MCV 86.9 (80-100) fl MCH 29.8 (26-34) pg MCHC 34.2 (32-36) g/dl RDW 12.7 (11.5-14.5) % Plt Count 221 (150-375) k/mm3 MPV 9.1 (7.4-10.4) fl Immature Gran % (Auto) 0.6 H (0-0.5) % Neut % (Auto) 88.8 H (45.5-73.1) % Lymph % (Auto) 4.9 L (18.3-44.2) % [place] % (Auto) 5.3 (2.6-8.5) % Eos % (Auto) 0.2 (0-4.4) % Baso % (Auto) 0.2 (0.2-1.2) % Lymph # (Auto) 0.81 L (0.9-3.2) K/mm3 [place] # (Auto) 0.9 H (0.1-0.6) K/mm3 Eos # (Auto) 0.0 (0-0.3) K/mm3 Baso # (Auto) 0.0 (0.0-0.1) K/mm3 Abs Immat Gran (auto) 0.10 H (0.00-0.031) K/mm3 Absolute Neuts (auto) 14.7 H (1.3-6.7) K/mm3 Absolute Nucleated RBC 0.000 (0.0-0.012) K/mm3 Nucleated RBC % 0.0 (0.0-0.2) % Sodium 139 (137-145) mmol/L Potassium 3.8 (3.4-5.0) mmol/L Chloride 106 (98-107) mmol/L Carbon Dioxide 25 (22-30) mmol/L Anion Gap 8 (4-12) mmol/L BUN 18 H (7-17) mg/dL Creatinine 0.83 (0.7-1.0) mg/dL Estim Creat Clear Calc 63 ml/min Estimated GFR > 60 (59 - ) Glucose 90 (65-110) mg/dL Calcium 9.1 (8.4-10.2) mg/dL Total Bilirubin 0.5 (0.2-1.3) mg/dL AST 26 (14-36) U/L ALT 19 (6-35) U/L Alkaline Phosphatase 71 (38-126) U/L Total Creatine Kinase 52 (30-135) U/L Troponin I < 0.012 (0.000-0.034) ng/mL Total Protein 7.1 (6.3-8.2) g/dL Albumin 4.0 (3.5-5.1) g/dL Lipase 29 (23-300) U/L Urine Color Dark yellow (Yellow) Urine Appearance Cloudy H (Clear) Urine pH 5.5 (5.0-9.0) Ur Specific [place] 1.018 (1.001-1.035) Urine Protein Trace (Negative) mg/dL Urine Glucose (UA) Negative (Negative) mg/dL Urine Ketones Trace H (Negative) mg/dL Ur Blood (Man) Negative (Negative) Urine Nitrate Positive H (Negative) Urine Bilirubin Negative (Negative) Urine Urobilinogen 1.0 (<2.0) mg/dL Leukocyte Esterase Rfl 2+ H (Negative) DONALD/UL Urine RBC 0-2 (0-2) /hpf Urine WBC 51-100 H (0-3) /hpf Ur Squamous Epith Cells Occasional (Few) /hpf Urine Bacteria 4+ H /hpf Urine Casts 0-2 <Uday Coleman MD - Last Filed: 05/25/25 18:25> Imaging Data Radiologist's impression: ITS Impressions Abdomen/Pelvis CT 05/25/25 16:25 IMPRESSION: 5 mm peripheral left lower lobe pulmonary nodule which requires no additional evaluation, unless the patient is at high risk, in which case consider an optional follow-up low-dose noncontrast CT of the chest in 12 months. Bilateral nephrolithiasis, without evidence of obstructive uropathy. Dilated appendix measuring up to 8 mm, without inflammatory changes. This may be normal for this patient or represent early acute uncomplicated appendicitis. <GIAN Livingston Last Filed: 05/25/25 18:31> Critical Care Time Critical Care Time Critical Care Time: No <Angelica Vizcaino PA-C - Last Filed: 05/25/25 18:31> Discharge Plan Discharge Clinical Impression: Acute UTI, Inflamed acute appendicitis without peritonitis <Angelica Vizcaino PA-C - Last Filed: 05/25/25 18:31> Patient Disposition: Still a Patient <GIAN Livingston Last Filed: 05/25/25 18:31> Condition: Stable <GIAN Livingston Last Filed: 05/25/25 18:31> Patient Language: Kiswahili <GIAN Livingston Last Filed: 05/25/25 18:31> Follow-up/Referrals: Chuck Ashraf [Other] <GIAN Livingston Last Filed: 05/25/25 18:31>
[2025-05-25] MEDS: METOCLOPRAMIDE HCL INJ 10 MG/2 ML VIAL IV PUSH (15:17)
[2025-05-25] MEDS: SODIUM CHLORIDE 0.9% IV 1,000 ML 999 ML IV CONT (15:18)
[2025-05-25 15:21] LABS: Creatine Kinase 52 U/L (30-135)
[2025-05-25 15:29] LABS: Troponin I < 0.012 ng/mL (0.000-0.034)
--- NOTE | 2025-05-25 18:52 | P.HP_ITS ---
H&P: HPI History of Present Illness Date/Time: 05/25/25 18:52 Chief Complaint: Abdominal Pain Narrative: This is a pleasant 55 year old female pt with PMH of Kidney stones, DM not currently treated as she has lost a lot of weight and her A1C one year ago was normal. She has not had it rechecked. Patient states she was outside today and a barbecue competition began having acute lower abdominal pain with nausea and progressive vomiting and sweating. It became severe enough that she presented to the emergency room for evaluation. She denies any urinary symptoms of burning, urgency, frequency or hematuria. She denies any diarrhea. It has been 2 days since her last bowel movement. She denies any hematemesis. In the emergency room a workup was performed that showed EKG with normal sinus rhythm 61 beats per minute without any ectopy or ischemia, normal vital signs, CBC showing leukocytosis with WBCs of 16.6 with a left shift, unremarkable metabolic panel, normal troponin, normal lipase but urinalysis showing positive nitrates positive leukocyte esterase, bacteria and wbc's with acceptable amount of epithelials. This is reflux 2 urine culture. Lactic acid and blood cultures x2 are pending. CT abdomen pelvis was performed that shows no obstructive uropathy only nephrolithiasis present. No ureterolithiasis. There is a dilated appendix at 8 mm without any inflammation. Considered to be an early, uncomplicated appendicitis. ER provider discussed with general surgeon on-call, Dr. Sexton, and he advised observe patient overnight and will follow. Patient is being admitted in the current setting of an acute urinary tract infection, acute early appendicitis and will be continued on IV antibiotics, pain medications p.r.n. as well as antiemetics p.r.n. and fluids for hydration while being kept NPO. Review of Systems Review of Systems: All systems reviewed & are unremarkable except as noted in HPI and below [facility] Past Medical History Medical History (Updated 05/25/25 @ 19:01 by MINI Reyes) History of atrial fibrillation Hypertension History of diabetes mellitus History of gastroesophageal reflux (GERD) History of hypertension Meds Home Medications and Allergies Allergies Allergy/AdvReac Type Severity Reaction Status Date / Time Sulfa (Sulfonamide Allergy Intermediate Unknown Verified 05/25/25 14:58 Antibiotics) adhesive Allergy Mild Unknown Verified 05/25/25 14:58 azithromycin Allergy Mild Unknown Verified 05/25/25 14:58 levofloxacin (From Levaquin) Allergy Mild Unknown Verified 05/25/25 14:58 morphine Allergy Mild Unknown Verified 05/25/25 14:58 shellfish derived Allergy Mild Unknown Verified 05/25/25 14:58 trimethobenzamide (From Allergy Mild Unknown Verified 05/25/25 14:58 Tigan) Vital Signs Vital Signs - 24 hr 05/25/25 12:08 05/25/25 14:04 05/25/25 14:15 Temperature 97.5 F L Pulse Rate 63 65 60 Respiratory Rate 16 15 18 Blood Pressure 136/90 Pulse Oximetry 100 99 97 Oxygen Delivery Room Air 05/25/25 14:24 05/25/25 14:30 05/25/25 14:45 Temperature Pulse Rate 62 62 63 Respiratory Rate 14 17 Blood Pressure Pulse Oximetry 98 97 Oxygen Delivery 05/25/25 15:00 05/25/25 15:15 05/25/25 15:30 Temperature Pulse Rate 67 61 65 Respiratory Rate 16 16 17 Blood Pressure Pulse Oximetry 97 99 99 Oxygen Delivery 05/25/25 15:45 05/25/25 16:00 05/25/25 16:01 Temperature Pulse Rate 77 71 73 Respiratory Rate 19 16 16 Blood Pressure 121/78 120/77 Pulse Oximetry 97 99 98 Oxygen Delivery 05/25/25 16:02 05/25/25 16:15 05/25/25 16:16 Temperature Pulse Rate 68 68 69 Respiratory Rate 15 17 17 Blood Pressure 119/76 Pulse Oximetry 97 98 96 Oxygen Delivery 05/25/25 16:30 05/25/25 16:31 05/25/25 16:45 Temperature Pulse Rate 69 68 70 Respiratory Rate 16 17 17 Blood Pressure 118/71 Pulse Oximetry 98 98 97 Oxygen Delivery 05/25/25 16:46 05/25/25 17:00 05/25/25 17:01 Temperature Pulse Rate 72 68 69 Respiratory Rate 17 16 16 Blood Pressure 114/71 116/74 Pulse Oximetry 96 97 96 Oxygen Delivery 05/25/25 17:15 05/25/25 17:16 05/25/25 17:30 Temperature Pulse Rate 63 62 66 Respiratory Rate 16 16 16 Blood Pressure 118/74 Pulse Oximetry 98 97 97 Oxygen Delivery 05/25/25 17:31 05/25/25 17:45 05/25/25 17:46 Temperature Pulse Rate 67 69 69 Respiratory Rate 17 17 18 Blood Pressure 113/67 117/73 Pulse Oximetry 96 97 97 Oxygen Delivery 05/25/25 18:00 05/25/25 18:01 05/25/25 18:15 Temperature Pulse Rate 66 66 91 Respiratory Rate 17 18 17 Blood Pressure 121/72 Pulse Oximetry 98 97 Oxygen Delivery Exam Const: General: comfortable and no acute distress HENMT: Face/Nose/Sinus: Normal nares present Mouth: Yes moist mucous membranes Eyes: General: appearance normal, both eyes and all related structures Neck: Neck: supple and no JVD Lymphatic: lymphadenopathy not noted Resp: Effort & Inspection: normal respiratory effort Auscultation: clear to auscultation bilaterally Cardio: Rate: regular rate Rhythm: regular rhythm Heart sounds: no gallops, no murmurs and no rubs GI: GI Palp: Yes Soft to palpation, Yes Tenderness to palpation present (GI) (RLQ tenderness to palpation. No rebound.), Yes Guarding due to palpation present (GI) and No Hernia present Skin: General skin exam: normal color and no rashes or lesions noted Lesions: no lesions noted Rashes: no rashes noted Wounds: no wounds Neuro: Speech: normal speech Motor exam (neuro): 5/5 motor strength present throughout and Normal motor muscle tone present throughout Sensory Exam: normal sensation Extrem: General: normal to inspection, no edema and no pedal edema Other: Freely and equally MAEW without deficit. Psych: Mental Status: mental status grossly normal Affect: normal affect H&P: Results Labs Labs: Short CBC 05/25/25 Range/Units 14:25 WBC 16.6 H (4.5-10.0) K/mm3 Hgb 13.9 (12.0-15.0) g/dL Hct 40.6 (37.0-47.0) % Plt Count 221 (150-375) k/mm3 BMP 05/25/25 14:25 Sodium 139 Potassium 3.8 Chloride 106 Carbon Dioxide 25 BUN 18 H Creatinine 0.83 Glucose 90 Calcium 9.1 Cardiac Enzymes 05/25/25 Range/Units 14:25 Total Creatine Kinase 52 (30-135) U/L Troponin I < 0.012 (0.000-0.034) ng/mL Liver Function 05/25/25 Range/Units 14:25 Total Bilirubin 0.5 (0.2-1.3) mg/dL AST 26 (14-36) U/L ALT 19 (6-35) U/L Alkaline Phosphatase 71 (38-126) U/L Albumin 4.0 (3.5-5.1) g/dL Urine 05/25/25 Range/Units 14:16 Urine Color Dark yellow (Yellow) Urine Appearance Cloudy H (Clear) Urine pH 5.5 (5.0-9.0) Ur Specific [place] 1.018 (1.001-1.035) Urine Protein Trace (Negative) mg/dL Urine Glucose (UA) Negative (Negative) mg/dL Assessment and Plan Assessment and plan (1) Inflamed acute appendicitis without peritonitis: Code(s): K35.80 - Unspecified acute appendicitis Status: Acute Assessment and Plan: * As evidence by CT scan showing a dilated appendix to 8 mm without any acute inflammation. Suspicious of an early, complicated appendicitis. * left-shifted wbc's present. Blood cultures pending * Will continue IV antibiotics of Zosyn * IV fluids for hydration with normal saline at 125 mL/hour * monitor and trend labs and vital signs. * patient was discussed with general surgeon, Dr. Sexton, and he will follow * Dilaudid 1 mg Q 3 hours p.r.n. IV push for severe pain * Zofran 4 mg IV push q.6 hours p.r.n. nausea * NPO (2) Acute UTI: Code(s): N39.0 - Urinary tract infection, site not specified Status: Acute Assessment and Plan: * urine culture pending * blood cultures pending * continue IV antibiotics (3) Hypertension: Code(s): I10 - Essential (primary) hypertension Status: Chronic Assessment and Plan: * consider reordering of home medications once they have been confirmed. (4) History of atrial fibrillation: Code(s): Z86.79 - Personal history of other diseases of the circulatory system Status: Chronic Assessment and Plan: * Patient states she was diagnosed with atrial fibrillation in 2014 and was on blood thinners for 1 year, however those were discontinued in 2014 and she has not had any further episodes of atrial fibrillation. * EKG in ER shows normal sinus rhythm 61 beats per minute without any ectopy or ischemia. * Consider telemetry monitoring if patient becomes symptomatic. (5) History of diabetes mellitus: Code(s): Z86.39 - Personal history of other endocrine, nutritional and metabolic disease Status: Chronic Assessment and Plan: * Patient states she is not currently treated as she lost 55 lb over the past year and has not required any further treatment. * Last hemoglobin A1c was one year ago and she cannot recall what it was. * Will check A1C here Quality VTE Prophylaxis VTE prophylaxis: mechanical ordered Hospitalist MIPS Advance Care Plan I have confirmed that the patient's Advanced Care Plan is present, code status is documented, or surrogate decision maker is listed in patient medical record.: Yes Medication Reconciliation I have utilized all available resources to obtain, update and review the patients current medications (includes all prescriptions, OTC, herbals, cannabis, and nutritional supplements).: Yes
[2025-05-25] MEDS: cefTRIAXone 1 GM in SODIUM CHLORIDE 0.9% IV 50 ML 100 ML IVPB (21:14)
[2025-05-25] MEDS: ONDANSETRON INJ 4 MG/2 ML VIAL IV PUSH (21:14)
[2025-05-25] MEDS: SODIUM CHLORIDE 0.9% IV 1,000 ML 125 ML IV CONT (21:15)
[2025-05-25] MEDS: PIPERACILLIN/TAZOBACTAM SOD 3.375 GM in SODIUM CHLORIDE 0.9% IV 50 ML 100 ML IVPB (21:15)
--- NOTE | 2025-05-25 21:25 | ADMGEN ---
This patient, Graciela Arauz, was admitted to [facility] Surg Room 301-01. Patient/family oriented to hospital policies and general routines including ID bracelet, bed and alarms, visiting hours, pain management, procedures, bathroom and other care routines, personal items, smoking policy, room service/diet, and visiting hours. Information on how to activate the Rapid Response Team has been discussed. Patient/Family are encouraged to report perceived risks to care and to ask questions if they do not understand what they are told or what they should do.
[2025-05-25 21:39] LABS: Hemoglobin A1C 4.8 % (<5.7)
[2025-05-25] MEDS: DEXTROSE 5%/0.9% SOD CHL 1,000 ML 100 ML IV CONT (21:49)
[2025-05-25] MEDS: HYDROmorphone HCL INJ (*CRX) 2 MG/ML VIAL 1 MG IV PUSH (21:53)
[2025-05-26] VITALS (13 sets, daily range): BP systolic 133–161; BP diastolic 77–90; PULSE 56–84; RESP 14–20; TEMP 35.6–36.4; O2SAT 96–100
[2025-05-26] MEDS: PIPERACILLIN/TAZOBACTAM SOD 3.375 GM in SODIUM CHLORIDE 0.9% IV 50 ML 100 ML IVPB ×3 (05:21→22:13)
[2025-05-26 06:34] LABS: Hematocrit 35.8 % (37.0-47.0); Hemoglobin 12.1 g/dL (12.0-15.0); INR 1.1; Immature Granulocyte Percent A 0.4 % (0-0.5); Lymphocytes Absolute Auto 1.39 K/mm3 (0.9-3.2); Mean Corpuscular HGB Conc 33.8 g/dl (32-36); Mean Corpuscular Hemoglobin 30.3 pg (26-34); Mean Corpuscular Volume 89.7 fl (80-100); Nucleated Red Blood Cells Absolute Auto 0.000 K/mm3 (0.0-0.012); Nucleated Red Blood Cells Perc 0.0 % (0.0-0.2); Platelet Count Result 197 k/mm3 (150-375); Prothrombin Time 13.7 Seconds (11.1-14.7); Red Blood Count 3.99 M/mm3 (4.2-5.4); White Blood Count 7.8 K/mm3 (4.5-10.0)
[2025-05-26 06:35] LABS: Partial Thromboplastin Time 27.5 Seconds (22.3-36.8)
[2025-05-26 06:44] LABS: Alanine Aminotransferase 13 U/L (6-35); Albumin Level 3.1 g/dL (3.5-5.1); Alkaline Phosphatase 52 U/L (38-126); Anion Gap 5 mmol/L (4-12); Aspartate Amino Transferase 20 U/L (14-36); Bilirubin,Total 0.5 mg/dL (0.2-1.3); Blood Urea Nitrogen 15 mg/dL (7-17); Calcium 8.3 mg/dL (8.4-10.2); Carbon Dioxide 24 mmol/L (22-30); Chloride 109 mmol/L (98-107); Estimated CRCL calculation 64 ml/min; Estimated Glomerular Filt Rate > 60; Glucose 89 mg/dL (65-110); Magnesium 2.0 mg/dL (1.6-2.3); Potassium 3.5 mmol/L (3.4-5.0); Sodium 138 mmol/L (137-145); Total Protein 5.7 g/dL (6.3-8.2)
[2025-05-26] MEDS: DEXTROSE 5%/0.9% SOD CHL 1,000 ML 100 ML IV CONT (08:33)
[2025-05-26] MEDS: ONDANSETRON INJ 4 MG/2 ML VIAL IV PUSH ×2 (08:38→16:19)
--- NOTE | 2025-05-26 11:02 | P.CONGS_ITS ---
Assessment and Plan Assessment and plan (1) Abnormal CT of the abdomen: Code(s): R93.5 - Abnormal findings on diagnostic imaging of other abdominal regions, including retroperitoneum Status: Acute Assessment and Plan: * Patient presented with vomiting and lower abdominal pain. CT showed bilateral nephrolithiasis without obstructive uropathy and mildly dilated appendix without surrounding inflammatory change. Discussed multiple differential diagnosis for her abdominal pain, including possible early acute appendicitis, UTI, gastroenteritis, or less likely her ovarian cysts. She is still having mild lower abdominal pain, but nausea has improved. She does have RLQ tenderness on exam as well as in the LLQ. Her leukocytosis has resolved. We discussed treatment options in detail, including nonoperative management with IV antibiotics and monitoring versus proceeding with a laparoscopic appendectomy. The patient would like to proceed with surgery. We discussed the description of the procedure, risks, benefits, alternatives, and expected recovery. Will keep her NPO and continue IV antibiotics, IV fluids, and analgesics as needed pre-operatively. She has been added to the surgery schedule for today. (2) Lower abdominal pain: Code(s): R10.30 - Lower abdominal pain, unspecified Status: Acute Assessment and Plan: * See plan above. (3) Acute UTI: Code(s): N39.0 - Urinary tract infection, site not specified Status: Acute Assessment and Plan: * Continue IV Zosyn. Urine cx pending (4) Hypertension: Code(s): I10 - Essential (primary) hypertension Status: Chronic Plan I have discussed the patient's case and plan of care with Dr. Sexton. Thank you for allowing us to see the patient in consultation and we will continue to follow along with you. History of Present Illness Consult details Consult date: 05/26/25 Reason for consult: other (Dilated appendix on imaging) Requesting physician: Angelica Vizcaino PA-C Narrative: This is a 55-year-old woman with history of hypertension, who presented to the ED yesterday with complaints of nausea and vomiting. She reports 2 days ago around 11:00 a.m. she developed profuse sweating, nausea, and cramping lower abdominal pain. At that time, she had been out in the heat the day before and that morning, therefore she thought it may be related to the heat. She felt like she needed to have a bowel movement, so she tried but was unable to have a bowel movement. She been began vomiting and had multiple episodes of emesis that was reportedly bilious towards the end. She continued to have cramping lower abdominal pain that was unchanged. Due to her persistent symptoms, she came into the ED for evaluation. She does report a history of multiple kidney stones, but reports this feels different than when that has happened in the past. She denies any urinary complaints, vaginal discharge, dysuria, or urgency. No recent sick contacts. Her and her have been eating the same food and he has not had any similar symptoms. In the ED, she was afebrile and vital signs stable. [place] [id number]. UA suggestive of UTI. Urine culture pending. CT scan of the abdomen and pelvis without IV contrast showed a dilated appendix measuring up to 8 mm without inflammatory changes, which may represent early acute uncomplicated appendicitis or may be normal for the patient. Also noted is bilateral nephrolithiasis without evidence of obstructive uropathy, simple appearing bilateral ovarian cysts, small uncomplicated fat containing bilateral inguinal hernias, and a 5 mm peripheral left lower lobe pulmonary nodule. She was admitted and is on IV Zosyn. She continues to some mild lower abdominal pain primarily focused in the suprapubic area. She reports this is cramping pain, but does feel slightly better than when she was admitted. She still has some mild nausea, but no vomiting since admission. Still has not moved her bowels. Only previous abdominal surgery is a laparoscopic cholecystectomy and vaginal partial hysterectomy. She also has a history of one episode of atrial fibrillation and was on anticoagulation for about a year without recurrence and was taken off of anticoagulation. She was also previously prediabetic, which improved after 50 lb weight loss with a normal hgb A1C on admission. Review of Systems 2 Review of Systems: All systems reviewed & are unremarkable except as noted in HPI and below PMFSH Past Medical History Medical History Migraines History of atrial fibrillation Hypertension History of diabetes mellitus Resolved after weight loss. No longer diabetic. History of gastroesophageal reflux (GERD) History of hypertension Surgical History Surgical History History of partial hysterectomy Partial vaginal hysterectomy Hx laparoscopic cholecystectomy Social History Social History Smoking status: Current some day smoker Tobacco type: e-cigarettes/vaping Alcohol intake: current Drinks per week: 4 Substance use: never Do You Feel Safe in your Home?: Yes Lack of Transportation: No Lack of Food: Never True Current Housing: I Have Housing Concerned About Future Housing: No Difficulty Paying Gas/Electric Bills: No Difficulty Paying for Meds: No Currently Unemployed: No Education: High School Diploma/GED Difficulty w/ Childcare or Family Care: No Spiritual care concerns: No Meds Home Medications and Allergies Home Medications ?Medication ?Instructions ?Recorded ?Confirmed ?Type albuterol sulfate 90 mcg/actuation 2 puff inhalation Q4H PRN 05/25/25 05/26/25 History aerosol inhaler shortness of breath or wheezing bupropion HCl 300 mg 24 hr tablet, 300 mg PO DAILY 05/25/25 05/26/25 History extended release lisinopril 20 mg tablet 20 mg PO DAILY 05/25/25 05/26/25 History montelukast 10 mg tablet 10 mg PO QPM 05/25/25 05/26/25 History mupirocin 2 % topical ointment 1 applic topical BID 05/25/25 05/26/25 History naltrexone 50 mg tablet 50 mg PO DAILY 05/25/25 05/26/25 History ondansetron 4 mg disintegrating 4 mg PO Q6H PRN nausea and vomiting 05/25/25 05/26/25 History tablet pantoprazole 40 mg tablet,delayed 40 mg PO DAILY 05/25/25 05/26/25 History release sumatriptan succinate 100 mg tablet 100 mg PO PRN PRN migraine headache 05/25/25 05/26/25 History galcanezumab-gnlm 120 mg/mL 120 mg subcut MONTHLY 05/26/25 05/26/25 History subcutaneous pen injector (Emgality Pen) Allergies Allergy/AdvReac Type Severity Reaction Status Date / Time Sulfa (Sulfonamide Allergy Intermediate Unknown Verified 05/25/25 20:10 Antibiotics) adhesive Allergy Mild Unknown Verified 05/25/25 20:10 azithromycin Allergy Mild Unknown Verified 05/25/25 20:10 levofloxacin (From Levaquin) Allergy Mild Unknown Verified 05/25/25 20:10 morphine Allergy Mild Unknown Verified 05/25/25 20:10 shellfish derived Allergy Mild Unknown Verified 05/25/25 20:10 trimethobenzamide (From Allergy Mild Unknown Verified 05/25/25 20:10 Tigan) Vital Signs Vital Signs - 24 hr 05/25/25 12:08 05/25/25 14:04 05/25/25 14:15 Temperature 97.5 F L Pulse Rate 63 65 60 Respiratory Rate 16 15 18 Blood Pressure 136/90 Pulse Oximetry 100 99 97 Oxygen Delivery Room Air 05/25/25 14:24 05/25/25 14:30 05/25/25 14:45 Temperature Pulse Rate 62 62 63 Respiratory Rate 14 17 Blood Pressure Pulse Oximetry 98 97 Oxygen Delivery 05/25/25 15:00 05/25/25 15:15 05/25/25 15:30 Temperature Pulse Rate 67 61 65 Respiratory Rate 16 16 17 Blood Pressure Pulse Oximetry 97 99 99 Oxygen Delivery 05/25/25 15:45 05/25/25 16:00 05/25/25 16:01 Temperature Pulse Rate 77 71 73 Respiratory Rate 19 16 16 Blood Pressure 121/78 120/77 Pulse Oximetry 97 99 98 Oxygen Delivery 05/25/25 16:02 05/25/25 16:15 05/25/25 16:16 Temperature Pulse Rate 68 68 69 Respiratory Rate 15 17 17 Blood Pressure 119/76 Pulse Oximetry 97 98 96 Oxygen Delivery 05/25/25 16:30 05/25/25 16:31 05/25/25 16:45 Temperature Pulse Rate 69 68 70 Respiratory Rate 16 17 17 Blood Pressure 118/71 Pulse Oximetry 98 98 97 Oxygen Delivery 05/25/25 16:46 05/25/25 17:00 05/25/25 17:01 Temperature Pulse Rate 72 68 69 Respiratory Rate 17 16 16 Blood Pressure 114/71 116/74 Pulse Oximetry 96 97 96 Oxygen Delivery 05/25/25 17:15 05/25/25 17:16 05/25/25 17:30 Temperature Pulse Rate 63 62 66 Respiratory Rate 16 16 16 Blood Pressure 118/74 Pulse Oximetry 98 97 97 Oxygen Delivery 05/25/25 17:31 05/25/25 17:45 05/25/25 17:46 Temperature Pulse Rate 67 69 69 Respiratory Rate 17 17 18 Blood Pressure 113/67 117/73 Pulse Oximetry 96 97 97 Oxygen Delivery 05/25/25 18:00 05/25/25 18:01 05/25/25 18:15 Temperature Pulse Rate 66 66 91 Respiratory Rate 17 18 17 Blood Pressure 121/72 Pulse Oximetry 98 97 Oxygen Delivery 05/25/25 19:35 05/25/25 23:45 05/26/25 05:15 Temperature 98.5 F 96.5 F L 97.6 F Pulse Rate 75 68 64 Respiratory Rate 18 18 18 Blood Pressure 131/94 H 110/64 133/79 Pulse Oximetry 99 100 97 Oxygen Delivery 05/26/25 07:48 Temperature Pulse Rate Respiratory Rate Blood Pressure Pulse Oximetry 97 Oxygen Delivery Room Air Exam 2 Const: General: comfortable and no acute distress Nutritional Appearance: a verage body habitus Orientation/consciousness: patient oriented x3 HENMT: Head: normocephalic and atraumatic Ears: hearing grossly normal bilaterally Mouth: Yes moist mucous membranes Eyes: General: appearance normal, both eyes and all related structures P upils: Equal, round and reactive pupils present Neck: Neck: normal visual inspection and full ROM Resp: Effort & Inspection: no respiratory distress Auscultation: clear to auscultation bilaterally Cardio: Rate: regular rate Rhythm: regular rhythm Peripheral pulses: P eripheral pulses 2+ throughout GI: Inspection: non-distended GI Palp: Yes Soft to palpation, Yes Tenderness to palpation present (GI) (diffusely tender across the lower abdomen), No Guarding due to palpation present (GI), Yes No hepatosplenomegaly present, No Hernia present and No Rebound tenderness present Auscultation: n ormal bowel sounds Rectal Exam: deferred Skin: General skin exam: normal color Neuro: General: moves all extremities and no focal motor deficits Speech: n ormal speech Motor exam (neuro): 5/5 motor strength present throughout Extrem: General: normal to inspection and no edema Psych: Mental Status: mental status grossly normal Attitude: cooperative Insight: Good insight present (Psych) Judgement: Good judgement present (Psych) Results Labs 05/26/25 05:23 05/26/25 05:23 Labs: Abnormal lab results 05/25/25 05/25/25 05/26/25 Range/Units 14:16 14:25 05:23 WBC 16.6 H (4.5-10.0) K/mm3 RBC 3.99 L (4.2-5.4) M/mm3 Hct 35.8 L (37.0-47.0) % Immature Gran % (Auto) 0.6 H (0-0.5) % Neut % (Auto) 88.8 H (45.5-73.1) % Lymph % (Auto) 4.9 L 17.8 L (18.3-44.2) % [place] % (Auto) 9.1 H (2.6-8.5) % Baso % (Auto) 0.1 L (0.2-1.2) % Lymph # (Auto) 0.81 L (0.9-3.2) K/mm3 [place] # (Auto) 0.9 H 0.7 H (0.1-0.6) K/mm3 Abs Immat Gran (auto) 0.10 H (0.00-0.031) K/mm3 Absolute Neuts (auto) 14.7 H (1.3-6.7) K/mm3 Chloride 109 H (98-107) mmol/L BUN 18 H (7-17) mg/dL Calcium 8.3 L (8.4-10.2) mg/dL Total Protein 5.7 L (6.3-8.2) g/dL Albumin 3.1 L (3.5-5.1) g/dL Urine Appearance Cloudy H (Clear) Urine Ketones Trace H (Negative) mg/dL Urine Nitrate Positive H (Negative) Leukocyte Esterase Rfl 2+ H (Negative) DONALD/UL Urine WBC 51-100 H (0-3) /hpf Urine Bacteria 4+ H /hpf Diabetes panel 05/25/25 05/25/25 05/26/25 Range/Units 14:25 21:00 05:23 Sodium 139 138 (137-145) mmol/L Potassium 3.8 3.5 (3.4-5.0) mmol/L Chloride 106 109 H (98-107) mmol/L Carbon Dioxide 25 24 (22-30) mmol/L BUN 18 H 15 (7-17) mg/dL Creatinine 0.83 0.82 (0.7-1.0) mg/dL Glucose 90 89 (65-110) mg/dL Hemoglobin A1c 4.8 (<5.7) % Calcium 9.1 8.3 L (8.4-10.2) mg/dL AST 26 20 (14-36) U/L ALT 19 13 (6-35) U/L Alkaline Phosphatase 71 52 (38-126) U/L Total Protein 7.1 5.7 L (6.3-8.2) g/dL Albumin 4.0 3.1 L (3.5-5.1) g/dL Calcium panel 05/25/25 05/26/25 Range/Units 14:25 05:23 Calcium 9.1 8.3 L (8.4-10.2) mg/dL Albumin 4.0 3.1 L (3.5-5.1) g/dL Pituitary panel 05/25/25 05/26/25 Range/Units 14:25 05:23 Sodium 139 138 (137-145) mmol/L Potassium 3.8 3.5 (3.4-5.0) mmol/L Chloride 106 109 H (98-107) mmol/L Carbon Dioxide 25 24 (22-30) mmol/L BUN 18 H 15 (7-17) mg/dL Creatinine 0.83 0.82 (0.7-1.0) mg/dL Glucose 90 89 (65-110) mg/dL Calcium 9.1 8.3 L (8.4-10.2) mg/dL Adrenal panel 05/25/25 05/26/25 Range/Units 14:25 05:23 Sodium 139 138 (137-145) mmol/L Potassium 3.8 3.5 (3.4-5.0) mmol/L Chloride 106 109 H (98-107) mmol/L Carbon Dioxide 25 24 (22-30) mmol/L BUN 18 H 15 (7-17) mg/dL Creatinine 0.83 0.82 (0.7-1.0) mg/dL Glucose 90 89 (65-110) mg/dL Calcium 9.1 8.3 L (8.4-10.2) mg/dL Total Bilirubin 0.5 0.5 (0.2-1.3) mg/dL AST 26 20 (14-36) U/L ALT 19 13 (6-35) U/L Alkaline Phosphatase 71 52 (38-126) U/L Total Protein 7.1 5.7 L (6.3-8.2) g/dL Albumin 4.0 3.1 L (3.5-5.1) g/dL All other labs normal. Imaging Additional studies: ITS Impressions Abdomen/Pelvis CT 05/25/25 16:25 IMPRESSION: 5 mm peripheral left lower lobe pulmonary nodule which requires no additional evaluation, unless the patient is at high risk, in which case consider an optional follow-up low-dose noncontrast CT of the chest in 12 months. Bilateral nephrolithiasis, without evidence of obstructive uropathy. Dilated appendix measuring up to 8 mm, without inflammatory changes. This may be normal for this patient or represent early acute uncomplicated appendicitis.
--- NOTE | 2025-05-26 14:00 | PC.NURSE ---
To OR per wheelchair.
--- NOTE | 2025-05-26 14:14 | P.PNIM_ITS ---
Progress Note: A&P Assessment and Plan (1) Inflamed acute appendicitis without peritonitis: Code(s): K35.80 - Unspecified acute appendicitis Status: Acute Assessment and Plan: * As evidence by CT scan showing a dilated appendix to 8 mm without any acute inflammation. Suspicious of an early, complicated appendicitis. * left-shifted wbc's present. Blood cultures pending * Will continue IV antibiotics of Zosyn * IV fluids for hydration with normal saline at 125 mL/hour * monitor and trend labs and vital signs. * patient was discussed with general surgeon, Dr. Sexton, and he will follow * Dilaudid 1 mg Q 3 hours p.r.n. IV push for severe pain * Zofran 4 mg IV push q.6 hours p.r.n. nausea * NPO (2) Acute UTI: Code(s): N39.0 - Urinary tract infection, site not specified Status: Acute Assessment and Plan: * urine culture pending * blood cultures pending * continue IV antibiotics (3) Hypertension: Code(s): I10 - Essential (primary) hypertension Status: Chronic Assessment and Plan: * consider reordering of home medications once they have been confirmed. (4) History of atrial fibrillation: Code(s): Z86.79 - Personal history of other diseases of the circulatory system Status: Chronic Assessment and Plan: * Patient states she was diagnosed with atrial fibrillation in 2014 and was on blood thinners for 1 year, however those were discontinued in 2014 and she has not had any further episodes of atrial fibrillation. * EKG in ER shows normal sinus rhythm 61 beats per minute without any ectopy or ischemia. * Consider telemetry monitoring if patient becomes symptomatic. (5) History of diabetes mellitus: Code(s): Z86.39 - Personal history of other endocrine, nutritional and metabolic disease Status: Chronic Assessment and Plan: * Patient states she is not currently treated as she lost 55 lb over the past year and has not required any further treatment. * Last hemoglobin A1c was one year ago and she cannot recall what it was. * Will check A1C here Plan patient presented with c/o RLQ pain and CT scan is concerning for early appendicitis, patient is seen by surgery service and has agreed to have appendectomy possibly later today or tomorrow, will monitor, patient is in the room and gave updates. Subjective Date/time seen: 05/26/25 14:14 Interval history: Abdominal Pain H&P-Narrative: This is a pleasant 55 year old female pt with PMH of Kidney stones, DM not currently treated as she has lost a lot of weight and her A1C one year ago was normal. She has not had it rechecked. Patient states she was outside today and a barbecue competition began having acute lower abdominal pain with nausea and progressive vomiting and sweating. It became severe enough that she presented to the emergency room for evaluation. She denies any urinary symptoms of burning, urgency, frequency or hematuria. She denies any diarrhea. It has been 2 days since her last bowel movement. She denies any hematemesis. In the emergency room a workup was performed that showed EKG with normal sinus rhythm 61 beats per minute without any ectopy or ischemia, normal vital signs, CBC showing leukocytosis with WBCs of 16.6 with a left shift, unremarkable metabolic panel, normal troponin, normal lipase but urinalysis showing positive nitrates positive leukocyte esterase, bacteria and wbc's with acceptable amount of epithelials. This is reflux 2 urine culture. Lactic acid and blood cultures x2 are pending. CT abdomen pelvis was performed that shows no obstructive uropathy only nephrolithiasis present. No ureterolithiasis. There is a dilated appendix at 8 mm without any inflammation. Considered to be an early, uncomplicated appendicitis. ER provider discussed with general surgeon on-call, Dr. Sexton, and he advised observe patient overnight and will follow. Patient is being admitted in the current setting of an acute urinary tract infection, acute early appendicitis and will be continued on IV antibiotics, pain medications p.r.n. as well as antiemetics p.r.n. and fluids for hydration while being kept NPO. patient presented with c/o RLQ pain and CT scan is concerning for early appendicitis, patient is seen by surgery service and has agreed to have kathia endectomy possibly later today or tomorrow, will monitor, patient is in the room and gave updates. Review of Systems Review of Systems: All systems reviewed & are unremarkable except as noted in HPI and below Exam Narrative: Patient is comfortable, NAD HEENT: eyes are clear and none icteric LUNGS:CTA HEART: RR S1S2 ABD: BS+, Soft and nontender Lower extremities: no edema SKIN: nonjaundiced Neuro: grossly intact. Objective Data Vital Signs Vital Signs: Vital Signs - 24 hr 05/25/25 14:15 05/25/25 14:24 05/25/25 14:30 Temperature Pulse Rate 60 62 62 Respiratory Rate 18 14 Blood Pressure Pulse Oximetry 97 98 Oxygen Delivery 05/25/25 14:45 05/25/25 15:00 05/25/25 15:15 Temperature Pulse Rate 63 67 61 Respiratory Rate 17 16 16 Blood Pressure Pulse Oximetry 97 97 99 Oxygen Delivery 05/25/25 15:30 05/25/25 15:45 05/25/25 16:00 Temperature Pulse Rate 65 77 71 Respiratory Rate 17 19 16 Blood Pressure 121/78 Pulse Oximetry 99 97 99 Oxygen Delivery 05/25/25 16:01 05/25/25 16:02 05/25/25 16:15 Temperature Pulse Rate 73 68 68 Respiratory Rate 16 15 17 Blood Pressure 120/77 Pulse Oximetry 98 97 98 Oxygen Delivery 05/25/25 16:16 05/25/25 16:30 05/25/25 16:31 Temperature Pulse Rate 69 69 68 Respiratory Rate 17 16 17 Blood Pressure 119/76 118/71 Pulse Oximetry 96 98 98 Oxygen Delivery 05/25/25 16:45 05/25/25 16:46 05/25/25 17:00 Temperature Pulse Rate 70 72 68 Respiratory Rate 17 17 16 Blood Pressure 114/71 Pulse Oximetry 97 96 97 Oxygen Delivery 05/25/25 17:01 05/25/25 17:15 05/25/25 17:16 Temperature Pulse Rate 69 63 62 Respiratory Rate 16 16 16 Blood Pressure 116/74 118/74 Pulse Oximetry 96 98 97 Oxygen Delivery 05/25/25 17:30 05/25/25 17:31 05/25/25 17:45 Temperature Pulse Rate 66 67 69 Respiratory Rate 16 17 17 Blood Pressure 113/67 Pulse Oximetry 97 96 97 Oxygen Delivery 05/25/25 17:46 05/25/25 18:00 05/25/25 18:01 Temperature Pulse Rate 69 66 66 Respiratory Rate 18 17 18 Blood Pressure 117/73 121/72 Pulse Oximetry 97 98 97 Oxygen Delivery 05/25/25 18:15 05/25/25 19:35 05/25/25 23:45 Temperature 36.9 C 35.8 C L Pulse Rate 91 75 68 Respiratory Rate 17 18 18 Blood Pressure 131/94 H 110/64 Pulse Oximetry 99 100 Oxygen Delivery 05/26/25 05:15 05/26/25 07:48 Temperature 36.4 C Pulse Rate 64 Respiratory Rate 18 Blood Pressure 133/79 Pulse Oximetry 97 97 Oxygen Delivery Room Air Intake/Output Intake/Output: Intake & Output 05/23/25 05/24/25 05/25/25 05/26/25 23:59 23:59 23:59 23:59 Intake Total 1050 1050 Balance 1050 1050 Meds/Results Medications: Active Medications Generic Name Dose Route Start Last Admin Trade Name Freq PRN Reason Stop Dose Admin Hydromorphone HCl 1 mg 05/25/25 19:02 05/25/25 21:53 Hydromorphone Hcl Inj (*Crx) 2 Mg/Ml Vial IV PUSH 1 mg Q3HR PRN Administration Severe Pain 7-10 Piperacillin Sod/Tazobactam 50 mls @ 100 mls/hr 05/25/25 22:00 05/26/25 05:51 Sod 3.375 gm/ Sodium Chloride IVPB Infused Q8HR CAREN Infusion Dextrose/Sodium Chloride 1,000 mls @ 100 mls/hr 05/25/25 21:35 05/26/25 08:33 Dextrose 5% Sodium Chloride 0.9% IV CONT 100 mls/hr .Q10H CAREN Administration Ondansetron HCl 4 mg 05/25/25 19:02 05/26/25 08:38 Ondansetron Inj 4 Mg/2 Ml Vial IV PUSH 4 mg Q6HR PRN Administration Nausea And Vomiting Radiology Results: ITS Impressions Abdomen/Pelvis CT 05/25/25 16:25 IMPRESSION: 5 mm peripheral left lower lobe pulmonary nodule which requires no additional evaluation, unless the patient is at high risk, in which case consider an optional follow-up low-dose noncontrast CT of the chest in 12 months. Bilateral nephrolithiasis, without evidence of obstructive uropathy. Dilated appendix measuring up to 8 mm, without inflammatory changes. This may be normal for this patient or represent early acute uncomplicated appendicitis. Labs Labs: Laboratory Results - last 24 hr 05/25/25 05/25/25 05/25/25 14:16 14:25 18:59 WBC 16.6 H RBC 4.67 Hgb 13.9 Hct 40.6 MCV 86.9 MCH 29.8 MCHC 34.2 RDW 12.7 Plt Count 221 MPV 9.1 Immature Gran % (Auto) 0.6 H Neut % (Auto) 88.8 H Lymph % (Auto) 4.9 L Hend[place] % (Auto) 5.3 Eos % (Auto) 0.2 Baso % (Auto) 0.2 Lymph # (Auto) 0.81 L [place] # (Auto) 0.9 H Eos # (Auto) 0.0 Baso # (Auto) 0.0 Abs Immat Gran (auto) 0.10 H Absolute Neuts (auto) 14.7 H Absolute Nucleated RBC 0.000 Nucleated RBC % 0.0 PT INR APTT Sodium 139 Potassium 3.8 Chloride 106 Carbon Dioxide 25 Anion Gap 8 BUN 18 H Creatinine 0.83 Estim Creat Clear Calc 63 Estimated GFR > 60 Glucose 90 POC Capillary Glucose Hemoglobin A1c Lactic Acid 0.7 Calcium 9.1 Magnesium Total Bilirubin 0.5 AST 26 ALT 19 Alkaline Phosphatase 71 Total Creatine Kinase 52 Troponin I < 0.012 Total Protein 7.1 Albumin 4.0 Lipase 29 Urine Color Dark yellow Urine Appearance Cloudy H Urine pH 5.5 Ur Specific [place] 1.018 Urine Protein Trace Urine Glucose (UA) Negative Urine Ketones Trace H Ur Blood (Man) Negative Urine Nitrate Positive H Urine Bilirubin Negative Urine Urobilinogen 1.0 Leukocyte Esterase Rfl 2+ H Urine RBC 0-2 Urine WBC 51-100 H Ur Squamous Epith Cells Occasional Urine Bacteria 4+ H Urine Casts 0-2 05/25/25 05/25/25 05/26/25 19:39 21:00 01:37 WBC RBC Hgb Hct MCV MCH MCHC RDW Plt Count MPV Immature Gran % (Auto) Neut % (Auto) Lymph % (Auto) Hendry % (Auto) Eos % (Auto) Baso % (Auto) Lymph # (Auto) Hend[place] # (Auto) Eos # (Auto) Baso # (Auto) Abs Immat Gran (auto) Absolute Neuts (auto) Absolute Nucleated RBC Nucleated RBC % PT INR APTT Sodium Potassium Chloride Carbon Dioxide Anion Gap BUN Creatinine Estim Creat Clear Calc Estimated GFR Glucose POC Capillary Glucose 83 98 Hemoglobin A1c 4.8 Lactic Acid Calcium Magnesium Total Bilirubin AST ALT Alkaline Phosphatase Total Creatine Kinase Troponin I Total Protein Albumin Lipase Urine Color Urine Appearance Urine pH Ur Specific [place] Urine Protein Urine Glucose (UA) Urine Ketones Ur Blood (Man) Urine Nitrate Urine Bilirubin Urine Urobilinogen Leukocyte Esterase Rfl Urine RBC Urine WBC Ur Squamous Epith Cells Urine Bacteria Urine Casts 05/26/25 05/26/25 05/26/25 05:23 07:51 11:24 WBC 7.8 RBC 3.99 L Hgb 12.1 Hct 35.8 L MCV 89.7 MCH 30.3 MCHC 33.8 RDW 13.0 Plt Count 197 MPV 9.4 Immature Gran % (Auto) 0.4 Neut % (Auto) 71.3 Lymph % (Auto) 17.8 L Hendry % (Auto) 9.1 H Eos % (Auto) 1.3 Baso % (Auto) 0.1 L Lymph # (Auto) 1.39 Hendry # (Auto) 0.7 H Eos # (Auto) 0.1 Baso # (Auto) 0.0 Abs Immat Gran (auto) 0.03 Absolute Neuts (auto) 5.6 Absolute Nucleated RBC 0.000 Nucleated RBC % 0.0 PT 13.7 INR 1.1 APTT 27.5 Sodium 138 Potassium 3.5 Chloride 109 H Carbon Dioxide 24 Anion Gap 5 BUN 15 Creatinine 0.82 Estim Creat Clear Calc 64 Estimated GFR > 60 Glucose 89 POC Capillary Glucose 92 90 Hemoglobin A1c Lactic Acid Calcium 8.3 L Magnesium 2.0 Total Bilirubin 0.5 AST 20 ALT 13 Alkaline Phosphatase 52 Total Creatine Kinase Troponin I Total Protein 5.7 L Albumin 3.1 L Lipase Urine Color Urine Appearance Urine pH Ur Specific [place] Urine Protein Urine Glucose (UA) Urine Ketones Ur Blood (Man) Urine Nitrate Urine Bilirubin Urine Urobilinogen Leukocyte Esterase Rfl Urine RBC Urine WBC Ur Squamous Epith Cells Urine Bacteria Urine Casts Quality VTE Prophylaxis VTE prophylaxis: mechanical ordered
[2025-05-26] MEDS: LACTATED RINGERS 1,000 ML 30 ML IV CONT (14:15)
--- NOTE | 2025-05-26 14:36 | P.PNAN_ITS ---
Anes - Initial Pre Proc Eval Procedure: Operation Date: 05/26/25 15:30 Proposed Procedures p Laparoscopic Appendectomy - Everardo Sexton DO Date/Time: 05/26/25 14:36 Surgeon: Sarah Tuttle MD Pre Op Diagnosis: Acute UTI, rule out appendicitis Patient Data Age: 55 Gender: F Height: 1.68 m Weight: 76.9 kg Last Vital Signs Temp 36.4 C 05/26/25 05:15 Pulse 64 05/26/25 05:15 Resp 18 05/26/25 05:15 BP 133/79 05/26/25 05:15 Pulse Ox 97 05/26/25 07:48 O2 Del Method Room Air 05/26/25 07:48 Allergies Allergy/AdvReac Type Severity Reaction Status Date / Time Sulfa (Sulfonamide Allergy Intermediate Unknown Verified 05/25/25 20:10 Antibiotics) adhesive Allergy Mild Unknown Verified 05/25/25 20:10 azithromycin Allergy Mild Unknown Verified 05/25/25 20:10 levofloxacin (From Levaquin) Allergy Mild Unknown Verified 05/25/25 20:10 morphine Allergy Mild Unknown Verified 05/25/25 20:10 shellfish derived Allergy Mild Unknown Verified 05/25/25 20:10 trimethobenzamide (From Allergy Mild Unknown Verified 05/25/25 20:10 Tigan) Home Medications ?Medication ?Instructions ?Recorded ?Confirmed ?Type albuterol sulfate 90 mcg/actuation 2 puff inhalation Q4H PRN 05/25/25 05/26/25 H istory aerosol inhaler shortness of breath or wheezing bupropion HCl 300 mg 24 hr tablet, 300 mg PO DAILY 05/25/25 05/26/25 History extended release lisinopril 20 mg tablet 20 mg PO DAILY 05/25/25 05/26/25 History montelukast 10 mg tablet 10 mg PO QPM 05/25/25 05/26/25 History mupirocin 2 % topical ointment 1 applic topical BID 05/25/25 05/26/25 History naltrexone 50 mg tablet 50 mg PO DAILY 05/25/25 05/26/25 History ondansetron 4 mg disintegrating 4 mg PO Q6H PRN nausea and vomiting 05/25/25 05/26/25 History tablet pantoprazole 40 mg tablet,delayed 40 mg PO DAILY 05/25/25 05/26/25 History release sumatriptan succinate 100 mg tablet 100 mg PO PRN PRN migraine headache 05/25/25 05/26/25 History galcanezumab-gnlm 120 mg/mL 120 mg subcut MONTHLY 05/26/25 05/26/25 History subcutaneous pen injector (Emgality Pen) Laboratory Tests 05/25/25 05/25/25 05/25/25 14:25 18:59 19:39 WBC 16.6 H K/mm3 (4.5-10.0) RBC 4.67 M/mm3 (4.2-5.4) Hgb 13.9 g/dL (12.0-15.0) Hct 40.6 % (37.0-47.0) MCV 86.9 fl (80-100) MCH 29.8 pg (26-34) MCHC 34.2 g/dl (32-36) RDW 12.7 % (11.5-14.5) Plt Count 221 k/mm3 (150-375) MPV 9.1 fl (7.4-10.4) Immature Gran % (Auto) 0.6 H % (0-0.5) Neut % (Auto) 88.8 H % (45.5-73.1) Lymph % (Auto) 4.9 L % (18.3-44.2) [place] % (Auto) 5.3 % (2.6-8.5) Eos % (Auto) 0.2 % (0-4.4) Baso % (Auto) 0.2 % (0.2-1.2) Lymph # (Auto) 0.81 L K/mm3 (0.9-3.2) [place] # (Auto) 0.9 H K/mm3 (0.1-0.6) Eos # (Auto) 0.0 K/mm3 (0-0.3) Baso # (Auto) 0.0 K/mm3 (0.0-0.1) Abs Immat Gran (auto) 0.10 H K/mm3 (0.00-0.031) Absolute Neuts (auto) 14.7 H K/mm3 (1.3-6.7) Absolute Nucleated RBC 0.000 K/mm3 (0.0-0.012) Nucleated RBC % 0.0 % (0.0-0.2) PT INR APTT Sodium 139 mmol/L (137-145) Potassium 3.8 mmol/L (3.4-5.0) Chloride 106 mmol/L (98-107) Carbon Dioxide 25 mmol/L (22-30) Anion Gap 8 mmol/L (4-12) BUN 18 H mg/dL (7-17) Creatinine 0.83 mg/dL (0.7-1.0) Estim Creat Clear Calc 63 ml/min Estimated GFR > 60 (59 - ) Glucose 90 mg/dL (65-110) POC Capillary Glucose 83 mg/dl (65-105) Hemoglobin A1c Lactic Acid 0.7 mmol/L (0.7-2.0) Calcium 9.1 mg/dL (8.4-10.2) Magnesium Total Bilirubin 0.5 mg/dL (0.2-1.3) AST 26 U/L (14-36) ALT 19 U/L (6-35) Alkaline Phosphatase 71 U/L (38-126) Total Creatine Kinase 52 U/L (30-135) Troponin I < 0.012 ng/mL (0.000-0.034) Total Protein 7.1 g/dL (6.3-8.2) Albumin 4.0 g/dL (3.5-5.1) Lipase 29 U/L (23-300) 05/25/25 05/26/25 05/26/25 21:00 01:37 05:23 WBC 7.8 K/mm3 (4.5-10.0) RBC 3.99 L M/mm3 (4.2-5.4) Hgb 12.1 g/dL (12.0-15.0) Hct 35.8 L % (37.0-47.0) MCV 89.7 fl (80-100) MCH 30.3 pg (26-34) MCHC 33.8 g/dl (32-36) RDW 13.0 % (11.5-14.5) Plt Count 197 k/mm3 (150-375) MPV 9.4 fl (7.4-10.4) Immature Gran % (Auto) 0.4 % (0-0.5) Neut % (Auto) 71.3 % (45.5-73.1) Lymph % (Auto) 17.8 L % (18.3-44.2) Cascade % (Auto) 9.1 H % (2.6-8.5) Eos % (Auto) 1.3 % (0-4.4) Baso % (Auto) 0.1 L % (0.2-1.2) Lymph # (Auto) 1.39 K/mm3 (0.9-3.2) Cascade # (Auto) 0.7 H K/mm3 (0.1-0.6) Eos # (Auto) 0.1 K/mm3 (0-0.3) Baso # (Auto) 0.0 K/mm3 (0.0-0.1) Abs Immat Gran (auto) 0.03 K/mm3 (0.00-0.031) Absolute Neuts (auto) 5.6 K/mm3 (1.3-6.7) Absolute Nucleated RBC 0.000 K/mm3 (0.0-0.012) Nucleated RBC % 0.0 % (0.0-0.2) PT 13.7 Seconds (11.1-14.7) INR 1.1 APTT 27.5 Seconds (22.3-36.8) Sodium 138 mmol/L (137-145) Potassium 3.5 mmol/L (3.4-5.0) Chloride 109 H mmol/L (98-107) Carbon Dioxide 24 mmol/L (22-30) Anion Gap 5 mmol/L (4-12) BUN 15 mg/dL (7-17) Creatinine 0.82 mg/dL (0.7-1.0) Estim Creat Clear Calc 64 ml/min Estimated GFR > 60 (59 - ) Glucose 89 mg/dL (65-110) POC Capillary Glucose 98 mg/dl (65-105) Hemoglobin A1c 4.8 % (<5.7) Lactic Acid Calcium 8.3 L mg/dL (8.4-10.2) Magnesium 2.0 mg/dL (1.6-2.3) Total Bilirubin 0.5 mg/dL (0.2-1.3) AST 20 U/L (14-36) ALT 13 U/L (6-35) Alkaline Phosphatase 52 U/L (38-126) Total Creatine Kinase Troponin I Total Protein 5.7 L g/dL (6.3-8.2) Albumin 3.1 L g/dL (3.5-5.1) Lipase 05/26/25 05/26/25 07:51 11:24 WBC RBC Hgb Hct MCV MCH MCHC RDW Plt Count MPV Immature Gran % (Auto) Neut % (Auto) Lymph % (Auto) [place] % (Auto) Eos % (Auto) Baso % (Auto) Lymph # (Auto) [place] # (Auto) Eos # (Auto) Baso # (Auto) Abs Immat Gran (auto) Absolute Neuts (auto) Absolute Nucleated RBC Nucleated RBC % PT INR APTT Sodium Potassium Chloride Carbon Dioxide Anion Gap BUN Creatinine Estim Creat Clear Calc Estimated GFR Glucose POC Capillary Glucose 92 mg/dl 90 mg/dl (65-105) (65-105) Hemoglobin A1c Lactic Acid Calcium Magnesium Total Bilirubin AST ALT Alkaline Phosphatase Total Creatine Kinase Troponin I Total Protein Albumin Lipase Patient hx anesthesia problems: post op nausea/vomiting Family hx anesthesia problems: none Results Review: All pre-operative results and documents have been reviewed as part of the pre- operative evaluation. [facility]LY [facility] Past Medical History Medical History Migraines History of atrial fibrillation Hypertension History of diabetes mellitus Resolved after weight loss. No longer diabetic. History of gastroesophageal reflux (GERD) History of hypertension Surgical History Surgical History History of partial hysterectomy Partial vaginal hysterectomy Hx laparoscopic cholecystectomy Social History Social History Smoking status: Current some day smoker Tobacco type: e-cigarettes/vaping Alcohol intake: current Drinks per week: 4 Substance use: never Do You Feel Safe in your Home?: Yes Lack of Transportation: No Lack of Food: Never True Current Housing: I Have Housing Concerned About Future Housing: No Difficulty Paying Gas/Electric Bills: No Difficulty Paying for Meds: No Currently Unemployed: No Education: High School Diploma/GED Difficulty w/ Childcare or Family Care: No Spiritual care concerns: No Anes - Eval Final PreProcedure Day of Procedure 05/26/25 14:36 Patient weight: overweight Heart: regular rate and rhythm Lungs: clear to auscultation Airway: Mallampati scale class II Neurological: alert and oriented Last oral intake: >/= 8 hours ASA classification: III Emergent: yes Anesthetic plan: proceed Anesthesia type and monitoring: general ETT and standard monitoring Results Review: All pre-operative results and documents have been reviewed as part of the pre- operative evaluation. Informed Consent: The patient's anesthetic plan and its attendant risks and benefits were discussed with the patient/family/POA. Questions were solicited and answers provided to the satisfaction of the patient/family/POA.
--- NOTE | 2025-05-26 14:39 | WPDHPUPDATE1 ---
History and Physical Update Update Date/Time: 05/26/25 14:39 History and Physical has been reviewed, including an updated exam of the patient. There are NO changes in the patient's condition. Risks, benefits, and alternatives have been discussed and questions answered. Patient agrees to proceed with procedure.
[2025-05-26] MEDS: KETOROLAC 15 MG/ML VIAL (*BKC) IV PUSH (14:45)
[2025-05-26] MEDS: ACETAMINOPHEN 500 MG TABLET 1000 MG PO (14:45)
--- NOTE | 2025-05-26 15:27 | S_PTH ---
PATIENT: Graciela Arauz LOC: [id number] U#:[id number] AGE/SX: 55/F ROOM: 301 RE05/25/[address]: Sahara Linn MD : 1970 BED: 01 DIS: 05/27/2025 SPEC #: [id number] RECD: 05/27/25 08:29 STATUS: EDI REAriel #: [id number] LIN: 05/26/25 15:[address]: Everardo Sexton DEPT: [facility] Surgical RECD BY: Margarito Kyle ENTERED: 05/27/25 08:29 SP TYPE: Surgical OTHR DR: Sarah Tuttle MD Tissues: A - Appendix Procedures: Hematoxylin and Eosin Stain Gross and Microscopic Level 3
[2025-05-26] MEDS: BUPIVACAINE/EPINEPHRINE 0.5% 50 ML VIAL 30 ML INFILTRATE (15:43)
--- NOTE | 2025-05-26 15:46 | P.OP_ITS ---
Procedure Note - Detailed Date of Procedure 05/26/25 Pre-op Diagnosis Acute appendicitis Post-op Diagnosis Same Procedure Performed Laparoscopic appendectomy Surgeon Everardo Sexton, DO Anesthesia General and Local (0.5% bupivicaine with epinephrine) Indications This is a 55-year-old woman who presented with lower abdominal pain that started yesterday. She was also experiencing significant nausea and vomiting. She presented with an elevated white blood count and CT showed evidence of a slightly dilated appendix. Findings were consistent with early acute appendicitis. She was admitted for further treatment. Discussions were made with the patient about treatment options and decision was made to proceed with laparoscopic appendectomy, possible open. Findings Laparoscopic appendectomy was performed. The appendix appeared dilated and indurated particularly in the distal 3rd. The base of the appendix appeared healthy and viable. Patient had small amount of clear fluid around the area as well as some clear fluid down in her pelvis. There did not appear to be any evidence of perforation or abscess. Incidentally she was also noted to have a 2 cm right ovarian cyst. Appendix was removed sent to the lab for pathology. Description of Procedure Procedure as well as risks, benefits, and alternatives were explained to the patient. The patient agreed to proceed. Written consent was obtained and placed in chart prior to procedure. The patient was brought back to surgical suite. She was placed supine on operating table. Time-out was done to confirm the patient and procedure. The patient was then intubated by the Anesthesia Department. Her abdomen was prepped and draped in sterile fashion using chlorhexidine prep. A 5 mm incision was made just to the left of the patient's umbilicus and a 5 mm Optiview trocar was advanced through the abdominal layers under direct visualization. Once inside the peritoneal cavity, carbon dioxide insufflation was used to create a pneumoperitoneum. The camera was inserted and the abdomen was inspected. No immediate abnormalities were identified. The patient was then placed in slight Trendelenburg position and rotated to the left. A 5 mm incision was made in the suprapubic region in midline and a 5 mm trocar was inserted under direct visualization. A 12 mm incision was made in the left lower quadrant and a 12 mm trocar was inserted under direct visualization. The right lower quadrant was carefully inspected. The cecum was identified and then this was traced back to the appendix. The appendix was identified and grasped at the mesoappendix and lifted anteriorly. Careful blunt dissection was carried out at the base of the appendix through the mesoappendix using a [place] grasper. An Endo-AMY 45 mm blue load stapler was then advanced across the base of the appendix and clamped and fired. A white reload was then clamped across the mesoappendix and fired. This freed up our appendix completely. It was then placed in an EndoCatch bag and removed through the left lower quadrant port. The staple lines were then inspected. Hemostasis appeared adequate and the staple lines appeared secure. The area was then irrigated with sterile saline. The pelvis was then carefully inspected and irrigated with sterile saline as well and the remainder of the abdomen was carefully inspected. The patient was then flattened out in bed. One final inspection was made around the abdominal cavity and no other abnormalities were seen. The left lower quadrant port was removed and a Nicanor-Ronn cone was used to approximate the fascia with an 0 Vicryl simple interrupted suture. The remaining ports were then removed under direct visualization. The camera was removed and the pneumoperitoneum was released. 0.5% bupivacaine with ep inephrine was infiltrated locally around each of the incisions. The skin of the incisions was then approximated using 4-0 Monocryl subcuticular suture and Exofin glue was applied on top. The patient was then awakened from anesthesia, extubated, and transferred to Recovery. Estimated Blood Loss 20 Urine Output 300 Pathology Yes (Appendix) Complications No immediate complications Condition Stable Disposition Floor [facility] Billing Surgery - Charge Forward: Surgery Billing
[2025-05-26] MEDS: fentaNYL CITRATE INJ (*CRX) 100 MCG/2 ML VIAL 25 MCG IV PUSH ×4 (16:21→16:32)
[2025-05-26] MEDS: SCOPOLAMINE 1 MG PATCH 1 PATCH TRANSDERM (16:39)
[2025-05-26] MEDS: HYDROmorphone HCL INJ (*CRX) 1 MG/ML SYR 0.5 MG IV PUSH ×2 (16:42→16:51)
--- NOTE | 2025-05-26 17:09 | PC.NURSE ---
To room from OR per stretcher.
[2025-05-26] MEDS: HYDROcodone/acetaminophen (*CRX) 7.5-325 MG TABLET 1 TAB PO (17:26)
[2025-05-26] MEDS: HYDROcodone/acetaminophen (*CRX) 5-325 MG TABLET 1 TAB PO (22:16)
[2025-05-27] MEDS: HYDROmorphone HCL INJ (*CRX) 2 MG/ML VIAL 1 MG IV PUSH (03:57)
[2025-05-27 04:25] VITALS: BP 135/79; PULSE 60; RESP 20; TEMP 36.6; O2SAT 100
[2025-05-27] MEDS: PIPERACILLIN/TAZOBACTAM SOD 3.375 GM in SODIUM CHLORIDE 0.9% IV 50 ML 100 ML IVPB (05:27)
[2025-05-27 06:24] LABS: Hematocrit 35.8 % (37.0-47.0); Hemoglobin 11.9 g/dL (12.0-15.0); Mean Corpuscular HGB Conc 33.2 g/dl (32-36); Mean Corpuscular Hemoglobin 29.8 pg (26-34); Mean Corpuscular Volume 89.5 fl (80-100); Platelet Count Result 210 k/mm3 (150-375); Red Blood Count 4.00 M/mm3 (4.2-5.4); White Blood Count 14.6 K/mm3 (4.5-10.0)
[2025-05-27 07:15] LABS: Anion Gap 5 mmol/L (4-12); Blood Urea Nitrogen 8 mg/dL (7-17); Calcium 8.7 mg/dL (8.4-10.2); Carbon Dioxide 23 mmol/L (22-30); Chloride 108 mmol/L (98-107); Estimated CRCL calculation 76 ml/min; Estimated Glomerular Filt Rate > 60; Glucose 105 mg/dL (65-110); Magnesium 2.0 mg/dL (1.6-2.3); Potassium 3.8 mmol/L (3.4-5.0); Sodium 136 mmol/L (137-145)
[2025-05-27 08:00] VITALS: BP 150/92; PULSE 55; RESP 17; TEMP 36.4; O2SAT 100
[2025-05-27] MEDS: HYDROcodone/acetaminophen (*CRX) 7.5-325 MG TABLET 1 TAB PO (08:22)
--- NOTE | 2025-05-27 08:45 | WPDANESPN ---
Anes - Prog Note Post-Op Date/Time: 05/27/25 08:45 Cardiovascular status: normal Respiratory status: normal Airway patency: baseline Mental status: baseline Post-Op hydration status: normal Vital Signs: Last Vital Signs Temp 36.4 C L 05/27/25 08:00 Pulse 55 L 05/27/25 08:00 Resp 17 05/27/25 08:00 BP 150/92 H 05/27/25 08:00 Pulse Ox 100 05/27/25 08:00 O2 Del Method Room Air 05/26/25 17:04 O2 Flow Rate 8 05/26/25 16:05 Pain Score (VAS): 1 I/O: Intake & Output 05/26/25 05/27/25 05/27/25 23:59 07:59 15:59 Intake Total 250 350 Balance 250 350 Laboratory Tests 05/27/25 05:22 05/27/25 05:22 05/26/25 05/26/25 05/26/25 11:24 17:24 20:06 WBC RBC Hgb Hct MCV MCH MCHC RDW Plt Count MPV Sodium Potassium Chloride Carbon Dioxide Anion Gap BUN Creatinine Estim Creat Clear Calc Estimated GFR Glucose POC Capillary Glucose 90 121 H 171 H Calcium Magnesium 05/27/25 05/27/25 05:22 07:43 WBC 14.6 H RBC 4.00 L Hgb 11.9 L Hct 35.8 L MCV 89.5 MCH 29.8 MCHC 33.2 RDW 12.5 Plt Count 210 MPV 9.8 Sodium 136 L Potassium 3.8 Chloride 108 H Carbon Dioxide 23 Anion Gap 5 BUN 8 D Creatinine 0.68 L Estim Creat Clear Calc 76 Estimated GFR > 60 Glucose 105 POC Capillary Glucose 80 Calcium 8.7 Magnesium 2.0 Post-procedural complaints: none Patient Feedback: Patient satisfied with anesthetic care.
[2025-05-27] MEDS: IBUPROFEN 600 MG TABLET PO (08:59)
[2025-05-27 09:36] VITALS: O2SAT 99
--- NOTE | 2025-05-27 09:45 | P.PNGS_ITS ---
Progress Note: A&P Assessment and Plan (1) Abnormal CT of the abdomen: Code(s): R93.5 - Abnormal findings on diagnostic imaging of other abdominal regions, including retroperitoneum Status: Acute Assessment and Plan: * Pod 1 status post laparoscopic appendectomy. Patient is voiding without difficulty, ambulating without assistance, tolerating regular diet without nausea or vomiting, and managing pain with oral medication. WBC 14.6, likely postop reaction or consequence of UTI. Surgically stable for discharge when cleared by medical team. Awaiting urine culture. (2) Lower abdominal pain: Code(s): R10.30 - Lower abdominal pain, unspecified Status: Acute Assessment and Plan: * See plan above. (3) Acute UTI: Code(s): N39.0 - Urinary tract infection, site not specified Status: Acute Assessment and Plan: * Continue IV Zosyn. Urine cx pending. (4) Hypertension: Code(s): I10 - Essential (primary) hypertension Status: Chronic Plan I have discussed the patient's case and plan of care with Dr. Sexton. Thank you for allowing us to see the patient in consultation and we will continue to follow along with you. Subjective Subjective Date/Time Seen: 05/27/25 09:45 Post Op day: 1 Patient reports: no new complaints, feels better and tolerating a regular diet Interval history: POD1 s/p laparoscopic appendectomy. Patient is doing well. Ambulating without assistance, tolerating regular diet without nausea or vomiting, managing pain with oral medication, voiding without difficulty. WBC 14.6, likely postoperative reaction or consequence of the UTI. Exam GI: Inspection: non-distended GI Palp: Yes Soft to palpation Other: Mild tenderness to palpation, specifically to left ventral incision. Incisions clean and dry, with glue intact and no signs of infection, dehiscence, skin necrosis. Objective Data Vital Signs Vital Signs: Vital Signs - 24 hr 05/26/25 15:50 05/26/25 16:05 05/26/25 16:20 Temperature 97.6 F Pulse Rate 84 61 59 L Respiratory Rate 14 20 14 Blood Pressure 157/87 H 156/80 H 154/90 H Pulse Oximetry 100 100 98 Oxygen Delivery Simple Face Mask Simple Face Mask Room Air Oxygen Flow Rate 8 8 05/26/25 16:35 05/26/25 16:50 05/26/25 17:04 Temperature 97.2 F L Pulse Rate 68 60 61 Respiratory Rate 15 16 14 Blood Pressure 160/89 H 161/87 H 159/86 H Pulse Oximetry 98 99 99 Oxygen Delivery Room Air Room Air Room Air Oxygen Flow Rate 05/26/25 17:15 05/26/25 17:30 05/26/25 18:00 Temperature 97.5 F L 96.0 F L 96.6 F L Pulse Rate 60 66 56 L Respiratory Rate 18 18 16 Blood Pressure 158/84 H 154/82 H 142/82 H Pulse Oximetry 98 97 96 Oxygen Delivery Oxygen Flow Rate 05/26/25 18:59 05/26/25 20:05 05/27/25 04:25 Temperature 96.4 F L 97.2 F L 97.8 F Pulse Rate 59 L 62 60 Respiratory Rate 16 20 20 Blood Pressure 144/80 H 146/77 H 135/79 Pulse Oximetry 99 96 100 Oxygen Delivery Oxygen Flow Rate 05/27/25 08:00 05/27/25 09:36 Temperature 97.5 F L Pulse Rate 55 L Respiratory Rate 17 Blood Pressure 150/92 H Pulse Oximetry 100 99 Oxygen Delivery Room Air Oxygen Flow Rate Intake/Output Intake/Output: Intake & Output 05/24/25 05/25/25 05/26/25 05/27/25 23:59 23:59 23:59 23:59 Intake Total 1050 1895 750 Output Total 300 Balance 1050 1595 750 Meds/Results Medications: Active Medications Generic Name Dose Route Start Last Admin Trade Name Freq PRN Reason Stop Dose Admin Hydrocodone Bitart/Acetaminophen 1 tab 05/26/25 17:05 05/26/25 22:16 Hydrocodone/Acetaminophen (*Crx) 5-325 Mg Tablet PO 1 tab Q4H PRN Administration Pain Rated 4-6 Hydrocodone Bitart/Acetaminophen 1 tab 05/26/25 17:05 05/27/25 08:22 Hydrocodone/Acetaminophen (*Crx) 7.5-325 Mg Tablet PO 1 tab Q4H PRN Administration Pain Rated 7-10 Hydromorphone HCl 1 mg 05/26/25 17:11 05/27/25 03:57 Hydromorphone Hcl Inj (*Crx) 2 Mg/Ml Vial IV PUSH 1 mg Q2H PRN Administration Breakthrough Pain Rated 7-10 or NPO Hydromorphone HCl 0.5 mg 05/26/25 17:12 Hydromorphone Hcl Inj (*Crx) 2 Mg/Ml Vial IV PUSH Q2H PRN Breakthrough Pain Rated 4-6 or NPO Piperacillin Sod/Tazobactam 50 mls @ 100 mls/hr 05/25/25 22:00 05/27/25 05:27 Sod 3.375 gm/ Sodium Chloride IVPB 100 mls/hr Q8HR CAREN Administration Ibuprofen 600 mg 05/26/25 17:05 05/27/25 08:59 Ibuprofen 600 Mg Tablet PO 600 mg Q6H PRN Administration Pain Rated 1-3 Naloxone HCl 0.1 mg 05/26/25 17:05 Naloxone Hcl 0.4 Mg/Ml Vial IV PUSH Q2M PRN Opiate Reversal Ondansetron HCl 4 mg 05/25/25 19:02 05/26/25 08:38 Ondansetron Inj 4 Mg/2 Ml Vial IV PUSH 4 mg Q6HR PRN Administration Nausea And Vomiting Polyethylene Glycol 17 gm 05/27/25 09:00 05/27/25 08:22 Polyethylene Glycol 3350 17 Gm Powd.Pack PO 17 gm QAM CAREN Administration Radiology Results: ITS Impressions Abdomen/Pelvis CT 05/25/25 16:25 IMPRESSION: 5 mm peripheral left lower lobe pulmonary nodule which requires no additional evaluation, unless the patient is at high risk, in which case consider an optional follow-up low-dose noncontrast CT of the chest in 12 months. Bilateral nephrolithiasis, without evidence of obstructive uropathy. Dilated appendix measuring up to 8 mm, without inflammatory changes. This may be normal for this patient or represent early acute uncomplicated appendicitis. Labs Labs: Laboratory Results - last 24 hr 05/26/25 05/26/25 05/26/25 11:24 17:24 20:06 WBC RBC Hgb Hct MCV MCH MCHC RDW Plt Count MPV Sodium Potassium Chloride Carbon Dioxide Anion Gap BUN Creatinine Estim Creat Clear Calc Estimated GFR Glucose POC Capillary Glucose 90 121 H 171 H Calcium Magnesium 05/27/25 05/27/25 05:22 07:43 WBC 14.6 H RBC 4.00 L Hgb 11.9 L Hct 35.8 L MCV 89.5 MCH 29.8 MCHC 33.2 RDW 12.5 Plt Count 210 MPV 9.8 Sodium 136 L Potassium 3.8 Chloride 108 H Carbon Dioxide 23 Anion Gap 5 BUN 8 D Creatinine 0.68 L Estim Creat Clear Calc 76 Estimated GFR > 60 Glucose 105 POC Capillary Glucose 80 Calcium 8.7 Magnesium 2.0
--- NOTE | 2025-05-27 10:43 | P.DS_ITS ---
DS: Admitting Diagnosis Discharge Date 05/27/25 Admitting Diagnosis Abdominal Pain DS: Discharge Diagnosis Discharge Diagnosis (1) Inflamed acute appendicitis without peritonitis: Code(s): K35.80 - Unspecified acute appendicitis Status: Acute Assessment and Plan: * As evidence by CT scan showing a dilated appendix to 8 mm without any acute inflammation. Suspicious of an early, complicated appendicitis. * left-shifted wbc's present. Blood cultures pending * Will continue IV antibiotics of Zosyn * IV fluids for hydration with normal saline at 125 mL/hour * monitor and trend labs and vital signs. * patient was discussed with general surgeon, Dr. Badillo, and he will follow * Dilaudid 1 mg Q 3 hours p.r.n. IV push for severe pain * Zofran 4 mg IV push q.6 hours p.r.n. nausea * NPO (2) Acute UTI: Code(s): N39.0 - Urinary tract infection, site not specified Status: Acute Assessment and Plan: * urine culture pending * blood cultures pending * continue IV antibiotics (3) Hypertension: Code(s): I10 - Essential (primary) hypertension Status: Chronic Assessment and Plan: * consider reordering of home medications once they have been confirmed. (4) History of atrial fibrillation: Code(s): Z86.79 - Personal history of other diseases of the circulatory system Status: Chronic Assessment and Plan: * Patient states she was diagnosed with atrial fibrillation in 2014 and was on blood thinners for 1 year, however those were discontinued in 2014 and she has not had any further episodes of atrial fibrillation. * EKG in ER shows normal sinus rhythm 61 beats per minute without any ectopy or ischemia. * Consider telemetry monitoring if patient becomes symptomatic. (5) History of diabetes mellitus: Code(s): Z86.39 - Personal history of other endocrine, nutritional and metabolic disease Status: Chronic Assessment and Plan: * Patient states she is not currently treated as she lost 55 lb over the past year and has not required any further treatment. * Last hemoglobin A1c was one year ago and she cannot recall what it was. * Will check A1C here Plan patient presented with c/o RLQ pain and CT scan is concerning for early appendicitis, patient is seen by surgery service and has agreed to have appendectomy possibly later today or tomorrow, will monitor, patient is in the room and gave updates. DS: Summary Hospital Course Hospital Course: patient presented with c/o RLQ pain and CT scan is concerning for early appendicitis, patient is seen by surgery service and has agreed to have appendectomy possibly later today or tomorrow, will monitor, patient is in the room and gave updates. POD # 1 S/P laparoscopic appendectomy. Patient clinical symptoms have improved, she is voiding without difficulty, ambulating without assistance, tolerating regular diet without nausea or vomiting, and managing pain with oral medication. WBC 14.6, likely postop reaction or consequence of UTI. Patient is seen by surgery service and recommended surgically stable for discharge when cleared by medical team. Urine is growing E coli will discharge patient on cefdinir. Time Spent with Patient Time attestation: Total time spent providing and/or coordinating discharge services: Exam Narrative: Patient is comfortable, NAD HEENT: eyes are clear and none icteric LUNGS:CTA HEART: RR S1S2 ABD: BS+, Soft and nontender Lower extremities: no edema SKIN: nonjaundiced Neuro: grossly intact. DS: Data Data Completed and Pending Pending studies at discharge: Pending at discharge 05/26/25 15:27 Surgical [PTH] Routine Labs on day of discharge: Labs from last 24 hours 05/27/25 05/27/25 05/26/25 07:43 05:22 20:06 WBC 14.6 H RBC 4.00 L Hgb 11.9 L Hct 35.8 L MCV 89.5 MCH 29.8 MCHC 33.2 RDW 12.5 Plt Count 210 MPV 9.8 Sodium 136 L Potassium 3.8 Chloride 108 H Carbon Dioxide 23 Anion Gap 5 BUN 8 D Creatinine 0.68 L Estim Creat Clear Calc 76 Estimated GFR > 60 Glucose 105 POC Capillary Glucose 80 171 H Calcium 8.7 Magnesium 2.0 05/26/25 05/26/25 17:24 11:24 WBC RBC Hgb Hct MCV MCH MCHC RDW Plt Count MPV Sodium Potassium Chloride Carbon Dioxide Anion Gap BUN Creatinine Estim Creat Clear Calc Estimated GFR Glucose POC Capillary Glucose 121 H 90 Calcium Magnesium Discharge Plan Discharge Attending physician on discharge: Sarah Tuttle Consulting providers: Everardo Badillo; Uday Coleman; Viviana Madrigal; Chacho Junior; Tracey Dillard; Norma Romero; Helio Perry; Donald Hliton; Crispin Chun Discharging Clinician: Sahara Linn Patient Disposition: Home Activity: other - see discharge instructions Diet: other - see discharge instructions Wound Care Instructions: other - see discharge instructions Discharge Instructions: DISCHARGE INSTRUCTION SHEET FOR HERNIA, GALLBLADDER AND APPENDIX SURGERIES DR. BADILLO PATIENT TO TAKE HOME 1. May shower in 24 hours, no soaking in bath x 2weeks. 2. Call office for: * Wound increasingly painful or bleeding * Vomiting * Fever of greater than 101 degrees 3. If no bowel movement for three days, take 1 oz. (30 ml) Milk of Magnesia or MiraLax 17g 1 to 2 times daily. 4. No heavy lifting > 10-15 pounds x 2 weeks for laparoscopic cholecystectomy or appendectomy. 5. No driving for 3 days or while taking narcotic pain medications. 6. Ice to surgical site for 48 hours (30 min on, then 30 min off). 7. Up walking 10-30 minutes three times per day. 8. Resume previous home medications. 9. Follow-up 10-14 days in office for wound check or as previously scheduled. ([phone]) 10. Oral pain medications prescription to be sent to pharmacy. Take Tylenol 500mg every 6 hours and Ibuprofen 600mg every 6 hours for the first 2 days, then as needed. 11. NUTRITION: Start out by drinking fluids and increase your diet as tolerated. If you experience nausea, try dry toast, crackers, and 7-UP. If nausea or vomiting persists, contact your surgeon?s office. 12. Gallbladders-Low Fat Diet for 2 weeks (send care note of low fat diet) 13. Inguinal Hernias-wear scrotal support for 48 hours 14. Abdominal Hernias-if sent home with abdominal binder, wear for the first 2 weeks (may remove to shower or at night to sleep). Patient to follow discharge care instruction from her surgeon and follow up as scheduled, patient to follow up with her primary care provider as soon as possible. patient is instructed if any symptoms redevelop to go nearest ER. Revised February 2019 Patient Instructions: Antibiotic Form Patient Language: [place] Stand Alone Forms: General Discharge Information, Work/School Release IP Follow-up/Referrals: Chuck Ashraf [Other] Everardo Badlilo DO [Physician] - 2 Weeks Discharge Medications: New hydrocodone-acetaminophen 5-325 mg tablet 1 tablet PO Q4H PRN (Reason: pain) Qty: 10 0RF polyethylene glycol 3350 [Miralax] 17 gram Powder In Packet 17 g PO QAM Qty: 14 0RF cefdinir 300 mg capsule 300 mg PO Q12H Qty: 10 0RF Continued sumatriptan succinate 100 mg tablet 100 mg PO PRN PRN (Reason: migraine headache) Rx Instructions: May repeat in 2 hours if Migraine has not subsided naltrexone 50 mg tablet 50 mg PO DAILY lisinopril 20 mg tablet 20 mg PO DAILY pantoprazole 40 mg tablet,delayed release (DR/EC) 40 mg PO DAILY montelukast 10 mg tablet 10 mg PO QPM mupirocin 2 % ointment 1 applic TOPICAL BID Patient Comments: apply to affected area albuterol sulfate 90 mcg/actuation HFA aerosol inhaler 2 puff INHALATION Q4H PRN (Reason: shortness of breath or wheezing) ondansetron 4 mg tablet,disintegrating 4 mg PO Q6H PRN (Reason: nausea and vomiting) bupropion HCl 300 mg tablet extended release 24 hr 300 mg PO DAILY Emgality Pen 120 mg/mL pen injector 120 mg SUBCUT MONTHLY Patient Comments: last dose 05/06/25 Date of admission: 05/25/25 18:17 Primary Care Provider: Chuck Ashraf Admitting Provider: Sarah Tuttle Attending physician on admission: Sahara Linn Condition: Stable
== END 2025-05-27 13:10 | disposition home or self-care (01) ==
LOC: ANHED 18:20 → ANH3MEDSUR 05-26 11:18
PROVIDERS: Nurse Practitioner Adult Health; Student in an Organized Health Care Education/Training Program; Surgery; Admitting Provider Internal Medicine; Emergency Provider Physician Assistant; Visit Provider Family Medicine
PROC: 0DTJ4ZZ Resection of Appendix, Percutaneous Endoscopic Approach (ICD-10-PCS; CPT 44970; principal; 2025-05-26 15:30)
DX: K35.80 Unspecified acute appendicitis (principal); N20.0 Calculus of kidney; N39.0 Urinary tract infection, site not specified; E11.9 Type 2 diabetes mellitus without complications; K21.9 Gastro-esophageal reflux disease without esophagitis; I10 Essential (primary) hypertension; Z86.79 Personal history of other diseases of the circulatory system
CPT/HCPCS: 44970; 36415; 74176; 80048; 80053; 81001; 82550; 82948; 83036; 83605; 83690; 83735; 84484; 85025; 85027; 85610; 85730; 87040; 87086; 88304; 93005; 96361; 96374; 96375; 99285; A9270; G0378; J0330; J0696; J1100; J1171; J1200; J1885; J2250; J2405; J2543; J2704; J2765; J3010; J7030; J7042; J7120